=== PATIENT | male | born 1950 | race Caucasian/White ===

== ENCOUNTER 2017-02-11 12:36 | Emergency (ER) | payer MEDICARE, OTHER ==
[~2017-02-11] VITALS: Ht 177.8 cm; Wt 85.0 kg
[~2017-02-11 12:36] MED LIST: METH10TA PO; METO25 PO; ZOCO40TA PO
[2017-02-11 12:38] VITALS: BP 133/84; PULSE 105; RESP 18; TEMP 99.3; O2SAT 95
[2017-02-11] MEDS ORDERED: METH40TA PO (12:55)
[2017-02-11] MEDS ORDERED: METO25TA3 PO (12:55)
[2017-02-11] MEDS ORDERED: ZOCO40TA PO (12:55)
[2017-02-11 12:56] VITALS: BP 158/87; PULSE 87; RESP 17; TEMP 99.6; O2SAT 98
[2017-02-11] MEDS ORDERED: SODIUM CHLOR 0.9% 1000 ML INJ 1,000 ML IV SCH ×2 (12:58→14:32)
[2017-02-11 13:07] VITALS: BP 132/77; PULSE 81; RESP 19; O2SAT 97
--- NOTE | 2017-02-11 13:15 | PD ---
HPI Chief Complaint: General Weakness Time Seen by Provider: 13:11 Travel History International Travel<30 days: No Contact w/Intl Traveler<30days: No Traveled to known affect area: No History of Present Illness HPI 66-year-old male that presents to the ED for evaluation of generalized weakness and constipation for 2 weeks. Per patient he has a history of constipation in the past secondary to the use of the medication for pain which per patient he stopped about 2 weeks ago to help him go have a bowel movement. Per patient 2 weeks ago he has no had a normal bowel movement. History [id number] remedies with no relief. Per patient he feels weak throughout. He states that he has no desire to eat. Per patient he is able to keep stuff down but his appetite is diminished. He states that he feels that he has a low-grade fever and chills. Denies any sick contacts. No recent travel. No chest pain or shortness of breath. He does have a history of COPD. He denies any cough or runny nose. No urinary symptoms. He denies any abdominal pain but does have some abdominal discomfort per patient. Pain is 4 out of 10. PFSH Past Medical History Arthritis: Yes (in Shoulders) Asthma: Yes Autoimmune Disease: No Anxiety: Yes Depression: Yes Cancer: Yes (Skin Cancer ) Cardiovascular Problems: Yes (HTN) High Cholesterol: Yes Congestive Heart Failure: No COPD: Yes Coronary Artery Disease: No Diabetes: No Diminished Hearing: No Endocrine: No Gastrointestinal Disorders: Yes Genitourinary: No Hepatitis: Yes (C) Hypertension: Yes Immune Disorder: No Implanted Vascular Access Dvce: No Musculoskeletal: Yes Psychiatric: Yes (PTSD) Reproductive: No Respiratory: Yes (COPD) Immunizations Current: Yes Triglycerides - High: Yes Tetanus Vaccination: > 5 Years Influenza Vaccination: Yes Past Surgical History Surgical History: No Previous Surgery Cholecystectomy: Yes (PT DENIES ) Social History Alcohol Use: Yes (ONE-TWO DRINK A DAY) Tobacco Use: No Substance Use: No (HX OF OPIATE,METHADONE USED. PT DENIES AT THIS MOMENT) Allergies-Medications (Allergen,Severity, Reaction): Coded Allergies: No Known Allergies (Verified , 02/11/17) Reported Meds & Prescriptions Reported Meds & Active Scripts Active Reported Methadone (Methadone HCl) 40 Mg Tab 50 Mg PO DAILY Metoprolol Tartrate 25 Mg Tab 25 Mg PO BID Zocor (Simvastatin) 40 Mg Tab 40 Mg PO HS Review of Systems Except as stated in HPI: all other systems reviewed are Neg Physical Exam Narrative GENERAL: SKIN: Warm and dry. HEAD: Atraumatic. Normocephalic. EYES: Pupils equal and round. No scleral icterus. No injection or drainage. ENT: No nasal bleeding or discharge. Mucous membranes pink and moist. Tongue is midline. No uvula deviation. NECK: Trachea midline. No JVD. CARDIOVASCULAR: Regular rate and rhythm. No murmurs, S3, S4. RESPIRATORY: No accessory muscle use. Clear to auscultation. Breath sounds equal bilaterally. GASTROINTESTINAL: Abdomen soft, non-tender, nondistended. Hepatic and splenic margins not palpable. MUSCULOSKELETAL: Extremities without clubbing, cyanosis, or edema. No obvious deformities. Full range of motion of the upper and lower extremities bilaterally. 2+ pulses bilaterally. NEUROLOGICAL: Awake and alert. No obvious cranial nerve deficits. Motor grossly within normal limits. Five out of 5 muscle strength in the arms and legs. Normal speech. PSYCHIATRIC: Appropriate mood and affect; insight and judgment normal. Data Data Last Documented VS Vital Signs Date Time Temp Pulse Resp B/P Pulse Ox O2 Delivery O2 Flow Rate FiO2 02/11/17 14:57 69 17 137/84 97 Room Air 02/11/17 12:56 99.6 Orders Complete Blood Count With Diff (02/11/17 12:58) Comprehensive Metabolic Panel (02/11/17 12:58) Lipase (02/11/17 12:58) Lactic Acid (02/11/17 12:58) Prothrombin Time / Inr (Pt) (02/11/17 12:58) Act Partial Throm Time (Ptt) (02/11/17 12:58) Urinalysis - C+S If Indicated (02/11/17 12:58) Ct Abd/Pel W Iv Contrast(Rout) (02/11/17 12:58) Iv Access Insert/Monitor (02/11/17 12:58) Ecg Monitoring (02/11/17 12:58) Oximetry (02/11/17 12:58) Sodium Chlor 0.9% 1000 Ml Inj (Ns 1000 M (02/11/17 12:58) Chest, Single Ap (02/11/17 ) Iohexol 350 Inj (Omnipaque 350 Inj) (02/11/17 14:16) Sodium Chlor 0.9% 1000 Ml Inj (Ns 1000 M (02/11/17 14:32) Labs Laboratory Tests Test 02/11/17 02/11/17 13:00 14:50 White Blood Count 9.0 TH/MM3 Red Blood Count 5.09 MIL/MM3 Hemoglobin 15.6 GM/DL Hematocrit 45.8 % Mean Corpuscular Volume 89.9 FL Mean Corpuscular Hemoglobin 30.6 PG Mean Corpuscular Hemoglobin 34.0 % Concent Red Cell Distribution Width 14.4 % Platelet Count 287 TH/MM3 Mean Platelet Volume 8.4 FL Neutrophils (%) (Auto) 54.7 % Lymphocytes (%) (Auto) 39.0 % Monocytes (%) (Auto) 4.2 % Eosinophils (%) (Auto) 1.3 % Basophils (%) (Auto) 0.8 % Neutrophils # (Auto) 4.9 TH/MM3 Lymphocytes # (Auto) 3.5 TH/MM3 Monocytes # (Auto) 0.4 TH/MM3 Eosinophils # (Auto) 0.1 TH/MM3 Basophils # (Auto) 0.1 TH/MM3 CBC Comment DIFF FINAL Differential Comment Prothrombin Time 11.2 SEC Prothromb Time International 1.0 RATIO Ratio Activated Partial 25.7 SEC Thromboplast Time Sodium Level 136 MEQ/L Potassium Level 3.5 MEQ/L Chloride Level 104 MEQ/L Carbon Dioxide Level 23.8 MEQ/L Anion Gap 8 MEQ/L Blood Urea Nitrogen 3 MG/DL Creatinine 0.92 MG/DL Estimat Glomerular Filtration 82 ML/MIN Rate Random Glucose 117 MG/DL Lactic Acid Level 2.0 mmol/L Calcium Level 9.1 MG/DL Total Bilirubin 0.3 MG/DL Aspartate Amino Transf 56 U/L (AST/SGOT) Alanine Aminotransferase 62 U/L (ALT/SGPT) Alkaline Phosphatase 106 U/L Total Protein 7.4 GM/DL Albumin 3.1 GM/DL Lipase 189 U/L Urine Color LIGHT-YELLOW Urine Turbidity CLEAR Urine pH 7.5 Urine Specific [place] 1.010 Urine Protein NEG mg/dL Urine Glucose (UA) NEG mg/dL Urine Ketones NEG mg/dL Urine Occult Blood NEG Urine Nitrite NEG Urine Bilirubin NEG Urine Urobilinogen LESS THAN 2.0 MG/DL Urine Leukocyte Esterase NEG Urine WBC LESS THAN 1 /hpf Microscopic Urinalysis Comment CULT NOT INDICATED MDM Medical Decision Making Medical Screen Exam Complete: Yes Emergency Medical Condition: Yes Medical Record Reviewed: Yes Interpretation(s) CBC & BMP Diagram 02/11/17 13:00 Last Impressions Abdomen/Pelvis CT 02/11/17 1258 Signed Impressions: Service Date/Time: , February 11, 2017 14:07 - CONCLUSION: Prostatomegaly Otherwise stable evaluation without evidence of acute process, suspicious mass or lymphadenopathy. Mark King MD Chest X-Ray 02/11/17 0000 Signed Impressions: Service Date/Time: , February 11, 2017 13:14 - CONCLUSION: No acute disease. Amado Jhaveri MD LFTs and lipase within normal limits. Urine negative. Differential Diagnosis Abdominal pain versus constipation versus sepsis versus dehydration versus UTI versus infection versus obstruction Narrative Course 66-year-old male that presents to the ED for evaluation of generalized weakness and possible constipation. Patient was properly examined and was found to have signs and symptoms of unclear etiology. Labs and imaging were ordered. Labs and imaging came back essentially unremarkable. that had large prostate noticed on the CAT scan otherwise unremarkable. No sign of UTI. No sign of other infection. Patient's vitals and physical exam are reassuring. Clear as to the reason of the weakness. My attending Dr. Francisco evaluated the patient with me and agrees with discharge. At this time recommendations for outpatient follow-up for further evaluation. Do recommend follow up for colonoscopy and possible evaluation of the prostate as it is enlarging could potentially be concerning for malignancy. Follow with PCP. See ED worsening symptoms. Diagnosis Primary Impression: Weakness generalized Additional Impression: Enlarged prostate Patient Instructions: General Instructions Additional Instructions: Continue taking your medications as prescribed. We [facility] as well as to get evaluated for the enlarged prostate. See ED worsening symptoms. There is no sign of constipation arranger scanned. I recommended continued take MiraLAX daily. Med/Other Pt SpecificInfo: No Change to Meds Disposition: DISCHARGE HOME Condition: Stable Fermín Ibarra Feb 11, 2017 13:15
[2017-02-11 13:22] LABS: AUTOMATED NEUTROPHIL # 4.9 TH/MM3 (1.8-7.7); BASOPHIL # 0.1 TH/MM3 (0-0.2); BASOPHIL % 0.8 % (0.0-2.0); EOSINOPHIL # 0.1 TH/MM3 (0-0.4); EOSINOPHIL % 1.3 % (0.0-4.0); HEMATOCRIT 45.8 % (39.0-51.0); HEMO FLAGS DIFF FINAL; LYMPHOCYTE # 3.5 TH/MM3 (1.0-4.8); MEAN CELL VOLUME 89.9 FL (80.0-100.0); MEAN CORPUSCULAR HEMOGLOBIN 30.6 PG (27.0-34.0); MONO % 4.2 % (0.0-8.0); NEUT % 54.7 % (16.0-70.0); PLATELET COUNT 287 TH/MM3 (150-450); RED BLOOD COUNT 5.09 MIL/MM3 (4.50-5.90); RED CELL DISTRIBUTION WIDTH 14.4 % (11.6-17.2)
[2017-02-11 13:29] LABS: APTT (PATIENT) 25.7 SEC (24.3-30.1); PROTHROMBIN TIME - PATIENT 11.2 SEC (9.8-11.6)
[2017-02-11 13:37] LABS: ALT (GPT) 62 U/L (12-78)
[2017-02-11 13:39] LABS: ALKALINE PHOSPHATASE 106 U/L (45-117); TOTAL BILIRUBIN ADULT 0.3 MG/DL (0.2-1.0)
[2017-02-11 13:43] LABS: ANION GAP 8 MEQ/L (5-15); AST (GOT) 56 U/L (15-37); BICARBONATE 23.8 MEQ/L (21.0-32.0); BLOOD UREA NITROGEN 3 MG/DL (7-18); CHLORIDE 104 MEQ/L (98-107); GLOMERULAR FILTRATION RATE 82 ML/MIN (>89); POTASSIUM 3.5 MEQ/L (3.5-5.1); SODIUM (NA) 136 MEQ/L (136-145)
[2017-02-11] MEDS ORDERED: IOHEXOL 350 MG/ML 10 ML VIAL (for RAD DIAG) IV ONE (14:16)
--- NOTE | 2017-02-11 14:21 | RADRPT ---
EXAM DATE/TIME: 02/11/2017 13:14 [facility] COMPARISON: CHEST SINGLE AP, February 27, 2016, 16:13. INDICATIONS : Fever. MEDICAL HISTORY : Hypertension. SURGICAL HISTORY : None. ENCOUNTER: Initial ACUITY: 1 day PAIN SCORE: 0/10 LOCATION: Bilateral chest FINDINGS: A single view of the chest demonstrates the lungs to be symmetrically aerated without evidence of mas s, infiltrate or effusion. The cardiomediastinal contours are unremarkable. Osseous structures are intact. CONCLUSION: No acute disease. Amado Jhaveri MD on February 11, 2017 at 14:18 Board Certified Radiologist. This report was verified electronically.
--- NOTE | 2017-02-11 14:51 | RADRPT ---
EXAM DATE/TIME: 02/11/2017 14:07 [facility] COMPARISON: CT ABDOMEN & PELVIS W CONTRAST, January 06, 2014, 23:25. INDICATIONS : Weakness, fever and constipation for 3 weeks. IV CONTRAST: 93 cc Omnipaque 350 (iohexol) IV ORAL CONTRAST: No oral contrast ingested. RADIATION DOSE: 14.49 CTDIvol (mGy) MEDICAL HISTORY : Hypertension. Hepatitis C. copd, skin ca SURGICAL HISTORY : None. ENCOUNTER: Initial ACUITY: 3 weeks PAIN SCALE: 5/10 LOCATION: abdomen TECHNIQUE: Volumetric scanning of the abdomen and pelvis was performed. Using automated exposure control and ad justment of the mA and/or kV according to patient size, radiation dose was kept as low as reasonably achievable to obtain optimal diagnostic quality images. DICOM format image data is available electro nically for review and comparison. FINDINGS: LOWER LUNGS: The visualized lower lungs are clear. LIVER: Homogeneous density without lesion. There is no dilation of the biliary tree. No calcified gallston es. SPLEEN: Normal size without lesion. PANCREAS: Within normal limits. KIDNEYS: Normal in size and shape. There is no mass, stone or hydronephrosis. ADRENAL GLANDS: Within normal limits. VASCULAR: There is no aortic aneurysm. BOWEL/MESENTERY: The stomach, small bowel, and colon demonstrate no acute abnormality. There is no free intraperitone al air or fluid. ABDOMINAL WALL: Within normal limits. RETROPERITONEUM: There is no lymphadenopathy. BLADDER: No wall thickening or mass. REPRODUCTIVE: Prostate gland is mildly enlarged. INGUINAL: There is no lymphadenopathy or hernia. MUSCULOSKELETAL: Within normal limits for patient age. CONCLUSION: Prostatomegaly Otherwise stable evaluation without evidence of acute process, suspicious mass or lymphadenopathy. Mark King MD on February 11, 2017 at 14:44 Board Certified Radiologist. This report was verified electronically.
[2017-02-11 14:57] VITALS: BP 137/84; PULSE 69; RESP 17; O2SAT 97
[2017-02-11 15:16] LABS: BLOOD, URINE NEG (NEG); GLUCOSE,URINE NEG (NEG); KETONE, URINE NEG (NEG); NITRITE,URINE NEG (NEG); PH, URINE 7.5 (5.0-8.5); URINE COLOR LIGHT-YELLOW (YELLW/STRAW)
[2017-02-11 15:20] LABS: COMMENT (UR) CULT NOT INDICATED; CULTURE IF INDICATED CULT NOT INDICATED
[2017-02-11] MEDS ORDERED: MIRA3350 PO (15:31)
[2017-02-11 15:51] VITALS: BP 176/84
== END 2017-02-11 15:52 | disposition home or self-care (01) ==
LOC: NEPC 12:36
DX: R53.1 Weakness (principal); N40.0 Benign prostatic hyperplasia without lower urinary tract symptoms; K59.00 Constipation, unspecified; R50.9 Fever, unspecified; R10.9 Unspecified abdominal pain; I10 Essential (primary) hypertension; E78.00 Pure hypercholesterolemia, unspecified; E78.1 Pure hyperglyceridemia; Z87.09 Personal history of other diseases of the respiratory system; Z87.39 Personal history of other diseases of the musculoskeletal system and connective tissue; Z86.59 Personal history of other mental and behavioral disorders; Z86.79 Personal history of other diseases of the circulatory system; Z87.19 Personal history of other diseases of the digestive system
CPT/HCPCS: 71010; 74177; 80053; 81001; 83605; 83690; 85025; 85610; 85730; 96360; 96361; 99285; J7030; Q9967

== ENCOUNTER 2017-02-27 11:03 | Emergency (ER) | payer MEDICARE, OTHER ==
[~2017-02-27 11:03] MED LIST changes: -METH10TA PO; +METH40TA PO; -METO25 PO; +METO25TA3 PO; +MIRA3350 PO
[2017-02-27 11:04] VITALS: BP 198/113; PULSE 90; RESP 24; TEMP 98.2; O2SAT 98
[2017-02-27] MEDS ORDERED: DIAZEPAM 10 MG TAB PO ONE (12:30)
[2017-02-27] MEDS ORDERED: SODIUM CHLOR 0.9% 1000 ML INJ 1,000 ML IV ONE (12:30)
[2017-02-27] MEDS ORDERED: KETOROLAC TROMETHAMINE 30 MG/ML (IVP) VIAL IV PUSH ONE (12:30)
[2017-02-27 12:51] LABS: AUTOMATED NEUTROPHIL # 7.9 TH/MM3 (1.8-7.7); BASOPHIL # 0.1 TH/MM3 (0-0.2); BASOPHIL % 0.9 % (0.0-2.0); EOSINOPHIL # 0.2 TH/MM3 (0-0.4); EOSINOPHIL % 1.4 % (0.0-4.0); HEMATOCRIT 44.2 % (39.0-51.0); HEMO FLAGS DIFF FINAL; LYMPH % 30.7 % (9.0-44.0); LYMPHOCYTE # 3.9 TH/MM3 (1.0-4.8); MEAN CORPUSCULAR HEMOGLOBIN 31.3 PG (27.0-34.0); MEAN CORPUSCULAR HGB CONC 34.4 % (32.0-36.0); MONO % 4.7 % (0.0-8.0); NEUT % 62.3 % (16.0-70.0); PLATELET COUNT 286 TH/MM3 (150-450); RED BLOOD COUNT 4.85 MIL/MM3 (4.50-5.90); RED CELL DISTRIBUTION WIDTH 14.2 % (11.6-17.2); WHITE BLOOD COUNT 12.8 TH/MM3 (4.0-11.0)
[2017-02-27 13:07] LABS: ALT (GPT) 36 U/L (12-78)
[2017-02-27 13:11] LABS: ALKALINE PHOSPHATASE 84 U/L (45-117); TOTAL BILIRUBIN ADULT 0.5 MG/DL (0.2-1.0)
[2017-02-27 13:13] LABS: ANION GAP 8 MEQ/L (5-15); AST (GOT) 40 U/L (15-37); BICARBONATE 23.4 MEQ/L (21.0-32.0); BLOOD UREA NITROGEN 6 MG/DL (7-18); CHLORIDE 105 MEQ/L (98-107); GLOMERULAR FILTRATION RATE 72 ML/MIN (>89); SODIUM (NA) 136 MEQ/L (136-145)
[2017-02-27 13:16] LABS: POTASSIUM 4.6 MEQ/L (3.5-5.1)
--- NOTE | 2017-02-27 13:32 | RADRPT ---
EXAM DATE/TIME: 02/27/2017 12:45 [facility] COMPARISON: CHEST SINGLE AP, February 11, 2017, 13:14. INDICATIONS : Chest pressure, short of breath, weakness. MEDICAL HISTORY : Chronic obstructive pulmonary disease. Hypertension Hepatitis C. SURGICAL HISTORY : None. ENCOUNTER: Initial ACUITY: 1 month PAIN SCORE: 1/10 LOCATION: Bilateral chest FINDINGS: The lungs are clear without infiltrate, nodule, or mass. There is no appreciable pleural effusion fo r technique. Heart and mediastinum are unremarkable. CONCLUSION: No acute cardiopulmonary disease. Katalina Middleton MD on February 27, 2017 at 13:30 Board Certified Radiologist. This report was verified electronically.
[2017-02-27 14:20] VITALS: RESP 16
--- NOTE | 2017-02-27 15:52 | PD ---
HPI Chief Complaint: Musculoskeletal Complaint Time Seen by Provider: 12:17 Travel History International Travel<30 days: No Contact w/Intl Traveler<30days: No Traveled to known affect area: No History of Present Illness HPI Patient is a 66-year-old male who comes in complaining of generalized weakness. He was here 2 weeks ago for the same thing. He says he has back pain, which has been chronic for a long time. He denies any new injuries. He says he feels weak when he walks. He does admit he has no place to live. He denies fever or chills. He denies chest pain or shortness of breath. He denies any specific complaints. PFSH Past Medical History Arthritis: Yes (in Shoulders) Asthma: Yes Autoimmune Disease: No Anxiety: Yes Depression: Yes Cancer: Yes (Skin Cancer ) Cardiovascular Problems: Yes High Cholesterol: Yes Congestive Heart Failure: No COPD: Yes Coronary Artery Disease: No Diabetes: No Diminished Hearing: No Endocrine: No Gastrointestinal Disorders: Yes Genitourinary: No Hepatitis: Yes (C) Hypertension: Yes Immune Disorder: No Implanted Vascular Access Dvce: No Musculoskeletal: Yes Psychiatric: Yes (PTSD) Reproductive: No Respiratory: Yes (COPD) Immunizations Current: Yes Triglycerides - High: Yes Tetanus Vaccination: Unknown ?: Not Past Surgical History Surgical History: No Previous Surgery Cholecystectomy: Yes (PT DENIES ) Social History Alcohol Use: No Tobacco Use: Yes (2 cigs/day) Substance Use: No (HX OF OPIATE,METHADONE USED. PT DENIES AT THIS MOMENT) Allergies-Medications (Allergen,Severity, Reaction): Coded Allergies: No Known Allergies (Verified , 02/11/17) Reported Meds & Prescriptions Reported Meds & Active Scripts Active Reported Metoprolol Tartrate 25 Mg Tab 25 Mg PO BID Zocor (Simvastatin) 40 Mg Tab 40 Mg PO HS Review of Systems Except as stated in HPI: all other systems reviewed are Neg General / Constitutional: No: Fever, Chills HENT: No: Headaches, Lightheadedness Cardiovascular: No: Chest Pain or Discomfort Respiratory: No: Shortness of Breath Gastrointestinal: No: Nausea, Vomiting, Abdominal Pain Genitourinary: No: Dysuria Musculoskeletal: No: Myalgias Skin: No Rash Neurologic: Positive: Weakness Physical Exam Narrative GENERAL: Awake and alert, in no acute distress. SKIN: Focused skin assessment warm/dry. HEAD: Atraumatic. Normocephalic. EYES: Pupils equal and round. No scleral icterus. ENT: Mucous membranes pink and moist. NECK: Trachea midline. No JVD. CARDIOVASCULAR: Regular rate and rhythm. No murmur appreciated. RESPIRATORY: No accessory muscle use. Clear to auscultation. Breath sounds equal bilaterally. GASTROINTESTINAL: Abdomen soft, non-tender, nondistended. MUSCULOSKELETAL: No obvious deformities. No clubbing. No cyanosis. No edema. No spinal tenderness to palpation. NEUROLOGICAL: Awake and alert. No obvious cranial nerve deficits. Motor grossly within normal limits. Normal speech. Able to walk without difficulty. PSYCHIATRIC: Appropriate mood and affect; insight and judgment normal. Data Data Last Documented VS Vital Signs Date Time Temp Pulse Resp B/P Pulse Ox O2 Delivery O2 Flow Rate FiO2 02/27/17 14:20 16 02/27/17 11:04 98.2 90 198/113 98 Room Air Orders Complete Blood Count With Diff (02/27/17 12:17) Comprehensive Metabolic Panel (02/27/17 12:17) Troponin I (02/27/17 12:17) Electrocardiogram (02/27/17 ) Chest, Ap & Lat (02/27/17 ) Iv Access Insert/Monitor (02/27/17 12:17) Diazepam (Valium) (02/27/17 12:30) Ketorolac Inj (Toradol Inj) (02/27/17 12:30) Sodium Chlor 0.9% 1000 Ml Inj (Ns 1000 M (02/27/17 12:30) Urinalysis - C+S If Indicated (02/27/17 12:17) Labs Laboratory Tests Test 02/27/17 12:36 White Blood Count 12.8 TH/MM3 Red Blood Count 4.85 MIL/MM3 Hemoglobin 15.2 GM/DL Hematocrit 44.2 % Mean Corpuscular Volume 91.0 FL Mean Corpuscular Hemoglobin 31.3 PG Mean Corpuscular Hemoglobin 34.4 % Concent Red Cell Distribution Width 14.2 % Platelet Count 286 TH/MM3 Mean Platelet Volume 8.0 FL Neutrophils (%) (Auto) 62.3 % Lymphocytes (%) (Auto) 30.7 % Monocytes (%) (Auto) 4.7 % Eosinophils (%) (Auto) 1.4 % Basophils (%) (Auto) 0.9 % Neutrophils # (Auto) 7.9 TH/MM3 Lymphocytes # (Auto) 3.9 TH/MM3 Monocytes # (Auto) 0.6 TH/MM3 Eosinophils # (Auto) 0.2 TH/MM3 Basophils # (Auto) 0.1 TH/MM3 CBC Comment DIFF FINAL Differential Comment Sodium Level 136 MEQ/L Potassium Level 4.6 MEQ/L Chloride Level 105 MEQ/L Carbon Dioxide Level 23.4 MEQ/L Anion Gap 8 MEQ/L Blood Urea Nitrogen 6 MG/DL Creatinine 1.03 MG/DL Estimat Glomerular Filtration 72 ML/MIN Rate Random Glucose 134 MG/DL Calcium Level 9.2 MG/DL Total Bilirubin 0.5 MG/DL Aspartate Amino Transf 40 U/L (AST/SGOT) Alanine Aminotransferase 36 U/L (ALT/SGPT) Alkaline Phosphatase 84 U/L Troponin I LESS THAN 0.02 NG/ML Total Protein 7.4 GM/DL Albumin 3.1 GM/DL MDM Medical Decision Making Medical Screen Exam Complete: Yes Emergency Medical Condition: Yes Medical Record Reviewed: Yes Differential Diagnosis Electrolyte abnormality versus dehydration versus malingering Narrative Course Patient is a 66-year-old male who comes in complaining of generalized weakness. Exam shows no neurologic abnormalities. IV established labs sent. Labs show slight elevation in white blood cell count of 12.8. Chest x-ray is negative for any acute findings. Patient refuses to urinate. He is given IV fluids. Case management came to speak with him because he has no place to live. He is advised follow-up at the [facility]. Patient advised follow-up with his primary doctor. Advised to return to the ED as needed for any worsening symptoms. Diagnosis Primary Impression: Weakness generalized Patient Instructions: General Instructions, Weakness (ED) Additional Instructions: Follow-up at the [facility]. Drink plan fluids. Return as needed for any worsening symptoms. Disposition: 01 DISCHARGE HOME Condition: Stable Ave Fields MD Feb 27, 2017 15:52
--- NOTE | 2017-02-28 12:40 | EKG ---
Date Performed: 02/27/2017 Time Performed: 13:14:31 PTAGE: 66 years EKG: Sinus rhythm Compared to prior tracing no significant change NORMAL ECG PREVIOUS TRACING : 02/27/2016 16.12 DOCTOR: Chirag Victoria Interpretating Date/Time 02/28/2017 12:34:33
== END 2017-02-27 16:09 | disposition home or self-care (01) ==
LOC: NEPD 11:03
DX: R53.1 Weakness (principal); D72.829 Elevated white blood cell count, unspecified; M54.9 Dorsalgia, unspecified; G89.29 Other chronic pain; I10 Essential (primary) hypertension; E78.5 Hyperlipidemia, unspecified; Z72.0 Tobacco use; Z87.39 Personal history of other diseases of the musculoskeletal system and connective tissue; Z87.09 Personal history of other diseases of the respiratory system; Z86.59 Personal history of other mental and behavioral disorders; Z86.79 Personal history of other diseases of the circulatory system; Z87.19 Personal history of other diseases of the digestive system
CPT/HCPCS: 71020; 80053; 84484; 85025; 93005; 96361; 96374; 99284; J1885; J7030

== ENCOUNTER 2017-03-10 09:43 | Inpatient (IN) | payer OTHER, MEDICARE ==
[~2017-03-10] VITALS: Ht 177.8 cm; Wt 77.6 kg
[~2017-03-10 09:43] MED LIST changes: -METH40TA PO; -MIRA3350 PO
[2017-03-10 11:26] VITALS: BP 182/92; PULSE 77; RESP 18; TEMP 97; O2SAT 96
[2017-03-10 12:05] LABS: AUTOMATED NEUTROPHIL # 4.8 TH/MM3 (1.8-7.7); BASOPHIL # 0.1 TH/MM3 (0-0.2); BASOPHIL % 0.9 % (0.0-2.0); EOSINOPHIL # 0.1 TH/MM3 (0-0.4); EOSINOPHIL % 1.5 % (0.0-4.0); HEMATOCRIT 45.5 % (39.0-51.0); HEMO FLAGS DIFF FINAL; LYMPHOCYTE # 3.7 TH/MM3 (1.0-4.8); MEAN CELL VOLUME 92.1 FL (80.0-100.0); MEAN CORPUSCULAR HEMOGLOBIN 31.1 PG (27.0-34.0); MEAN CORPUSCULAR HGB CONC 33.8 % (32.0-36.0); MONO % 5.3 % (0.0-8.0); NEUT % 52.3 % (16.0-70.0); PLATELET COUNT 330 TH/MM3 (150-450); RED BLOOD COUNT 4.94 MIL/MM3 (4.50-5.90); RED CELL DISTRIBUTION WIDTH 14.3 % (11.6-17.2); WHITE BLOOD COUNT 9.2 TH/MM3 (4.0-11.0)
--- NOTE | 2017-03-10 12:27 | PD ---
HPI Chief Complaint: Psychiatric Symptoms Time Seen by Provider: 12:13 Travel History International Travel<30 days: No Contact w/Intl Traveler<30days: No Traveled to known affect area: No History of Present Illness HPI Patient is a 66-year-old male brought into the emergency Department under [place] act for making suicidal statements at the [place]. Patient states that he is tired of feeling weak and made those statements in order to get help. He reports that he has felt weak for 1-2 months, he reports a 20 pound weight loss. He reports that he is eating when he feels hungry. He denies any fever, chills, abdominal pain, chest pain, headaches. He does report that for the last 1-2 months he has been unable to sleep at night. He reports sleeping for 15 minutes to hour and waking up frequently. He reports a history of chronic low back pain and hypertension. He has not taken any medications for his blood pressure today. Patient lives alone, he has a brother in the area. He denies any relationship issues. He denies any illicit drug use. He further denies any visual auditory hallucinations or previous suicide attempt. PFSH Past Medical History Arthritis: Yes (in Shoulders) Asthma: Yes Autoimmune Disease: No Anxiety: Yes Depression: Yes Cancer: Yes (Skin Cancer ) High Cholesterol: Yes Congestive Heart Failure: No COPD: Yes Coronary Artery Disease: No Diabetes: No Diminished Hearing: No Endocrine: No Gastrointestinal Disorders: Yes Genitourinary: No Hepatitis: Yes (C) Hypertension: Yes Immune Disorder: No Implanted Vascular Access Dvce: No Psychiatric: Yes (PTSD) Reproductive: No Immunizations Current: Yes Triglycerides - High: Yes Past Surgical History Cholecystectomy: Yes (PT DENIES ) Social History Alcohol Use: No Tobacco Use: Yes (2 cigs/day) Substance Use: No (HX OF OPIATE,METHADONE USED. PT DENIES AT THIS MOMENT) Allergies-Medications (Allergen,Severity, Reaction): Coded Allergies: No Known Allergies (Verified , 02/11/17) Reported Meds & Prescriptions Reported Meds & Active Scripts Active Reported Metoprolol Tartrate 25 Mg Tab 25 Mg PO BID Zocor (Simvastatin) 40 Mg Tab 40 Mg PO HS Review of Systems Except as stated in HPI: all other systems reviewed are Neg General / Constitutional: No: Fever, Chills HENT: No: Headaches Cardiovascular: No: Chest Pain or Discomfort Respiratory: No: Shortness of Breath Gastrointestinal: No: Nausea, Vomiting, Abdominal Pain, Loss of Appetite Genitourinary: No: Dysuria Musculoskeletal: Positive: Pain (low back pain, chronic) Neurologic: Positive: Weakness, Other (insomnia) Psychiatric: Positive: Depression Physical Exam Narrative GENERAL: Well-developed, well-nourished, alert male. Resting comfortably in no acute distress. SKIN: Warm and dry. HEAD: Atraumatic. Normocephalic. EYES: Pupils equal and round. No scleral icterus. No injection or drainage. ENT: No nasal bleeding or discharge. Mucous membranes pink and moist. NECK: Trachea midline. No JVD. CARDIOVASCULAR: Regular rate and rhythm. RESPIRATORY: No accessory muscle use. Scattered expiratory wheezes. Breath sounds equal bilaterally. GASTROINTESTINAL: Abdomen soft, non-tender, nondistended. Hepatic and splenic margins not palpable. MUSCULOSKELETAL: Extremities without clubbing, cyanosis, or edema. No obvious deformities. NEUROLOGICAL: Awake and alert. No obvious cranial nerve deficits. Motor grossly within normal limits. Five out of 5 muscle strength in the arms and legs. Normal speech. PSYCHIATRIC: Appropriate mood and affect; insight and judgment normal. Data Data Last Documented VS Vital Signs Date Time Temp Pulse Resp B/P Pulse Ox O2 Delivery O2 Flow Rate FiO2 03/10/17 11:26 97.0 77 18 182/92 96 Orders Complete Blood Count With Diff (03/10/17 11:32) Comprehensive Metabolic Panel (03/10/17 11:32) Psych Screen (03/10/17 11:32) Diet Regular Basic (03/10/17 Lunch) Labs Laboratory Tests Test 03/10/17 11:25 White Blood Count 9.2 TH/MM3 Red Blood Count 4.94 MIL/MM3 Hemoglobin 15.4 GM/DL Hematocrit 45.5 % Mean Corpuscular Volume 92.1 FL Mean Corpuscular Hemoglobin 31.1 PG Mean Corpuscular Hemoglobin 33.8 % Concent Red Cell Distribution Width 14.3 % Platelet Count 330 TH/MM3 Mean Platelet Volume 7.5 FL Neutrophils (%) (Auto) 52.3 % Lymphocytes (%) (Auto) 40.0 % Monocytes (%) (Auto) 5.3 % Eosinophils (%) (Auto) 1.5 % Basophils (%) (Auto) 0.9 % Neutrophils # (Auto) 4.8 TH/MM3 Lymphocytes # (Auto) 3.7 TH/MM3 Monocytes # (Auto) 0.5 TH/MM3 Eosinophils # (Auto) 0.1 TH/MM3 Basophils # (Auto) 0.1 TH/MM3 CBC Comment DIFF FINAL Differential Comment Sodium Level 139 MEQ/L Potassium Level 4.0 MEQ/L Chloride Level 106 MEQ/L Carbon Dioxide Level 23.6 MEQ/L Anion Gap 9 MEQ/L Blood Urea Nitrogen 6 MG/DL Creatinine 0.97 MG/DL Estimat Glomerular Filtration 77 ML/MIN Rate Random Glucose 87 MG/DL Calcium Level 9.2 MG/DL Total Bilirubin 0.5 MG/DL Aspartate Amino Transf 24 U/L (AST/SGOT) Alanine Aminotransferase 32 U/L (ALT/SGPT) Alkaline Phosphatase 84 U/L Total Protein 7.7 GM/DL Albumin 3.4 GM/DL MDM Medical Decision Making Medical Screen Exam Complete: Yes Emergency Medical Condition: Yes Interpretation(s) Laboratory Tests Test 03/10/17 11:25 White Blood Count 9.2 TH/MM3 Red Blood Count 4.94 MIL/MM3 Hemoglobin 15.4 GM/DL Hematocrit 45.5 % Mean Corpuscular Volume 92.1 FL Mean Corpuscular Hemoglobin 31.1 PG Mean Corpuscular Hemoglobin 33.8 % Concent Red Cell Distribution Width 14.3 % Platelet Count 330 TH/MM3 Mean Platelet Volume 7.5 FL Neutrophils (%) (Auto) 52.3 % Lymphocytes (%) (Auto) 40.0 % Monocytes (%) (Auto) 5.3 % Eosinophils (%) (Auto) 1.5 % Basophils (%) (Auto) 0.9 % Neutrophils # (Auto) 4.8 TH/MM3 Lymphocytes # (Auto) 3.7 TH/MM3 Monocytes # (Auto) 0.5 TH/MM3 Eosinophils # (Auto) 0.1 TH/MM3 Basophils # (Auto) 0.1 TH/MM3 CBC Comment DIFF FINAL Differential Comment Sodium Level 139 MEQ/L Potassium Level 4.0 MEQ/L Chloride Level 106 MEQ/L Carbon Dioxide Level 23.6 MEQ/L Anion Gap 9 MEQ/L Blood Urea Nitrogen 6 MG/DL Creatinine 0.97 MG/DL Estimat Glomerular Filtration 77 ML/MIN Rate Random Glucose 87 MG/DL Calcium Level 9.2 MG/DL Total Bilirubin 0.5 MG/DL Aspartate Amino Transf 24 U/L (AST/SGOT) Alanine Aminotransferase 32 U/L (ALT/SGPT) Alkaline Phosphatase 84 U/L Total Protein 7.7 GM/DL Albumin 3.4 GM/DL Vital Signs Date Time Temp Pulse Resp B/P Pulse Ox O2 Delivery O2 Flow Rate FiO2 03/10/17 11:26 97.0 77 18 182/92 96 Differential Diagnosis Mood disorder versus substance abuse versus attention seeking versus insomnia versus electrolyte abnormality versus other Narrative Course Patient is a 66-year-old male presenting under [place] act for making suicidal statements. Patient admits to making the statements secondary to feeling weak for the last 1-2 months and not getting any answers. He does report new onset of insomnia with broken sleep, waking up very frequently reporting up to only 4 hours of sleep a night. Patient has been seen and evaluated in the emergency department twice over the last month with the same complaints. CT scan abdomen and pelvis on February 11 by radiologist showed prostatomegaly otherwise stable exam with no acute process. Chest x-ray performed on the same date showed no acute process. Chest x-ray on 27 February again with no acute process. Review of CBCs over the last month again show no acute abnormalities Patient's weakness may be directly related to the fact that he is not sleeping at night and feeling more tired during the day. He denies taking naps during the day as well, this fatigue from lack of sleep could be contributing to his mental illness/depression symptoms. CBC and chemistry reviewed and are unremarkable. Patient was given a meal tray , he is resting comfortably. Patient is medically cleared for psychiatric evaluation at this time. Diagnosis Primary Impression: Medical clearance for psychiatric admission Additional Impressions: Suicidal ideation Sleep disturbance, unspecified Condition: Stable Lucia Stock Mar 10, 2017 12:27
[2017-03-10 12:40] LABS: ALKALINE PHOSPHATASE 84 U/L (45-117); TOTAL BILIRUBIN ADULT 0.5 MG/DL (0.2-1.0)
[2017-03-10 12:41] LABS: ALT (GPT) 32 U/L (12-78); ANION GAP 9 MEQ/L (5-15); AST (GOT) 24 U/L (15-37); BICARBONATE 23.6 MEQ/L (21.0-32.0); BLOOD UREA NITROGEN 6 MG/DL (7-18); CHLORIDE 106 MEQ/L (98-107); GLOMERULAR FILTRATION RATE 77 ML/MIN (>89); SODIUM (NA) 139 MEQ/L (136-145)
[2017-03-10 20:59] VITALS: BP 161/98; PULSE 78; RESP 18; TEMP 96.7; O2SAT 96
[2017-03-10] MEDS ORDERED: diphenhydrAMINE HCL 50 MG/ML VIAL - HS PRN IM (21:15)
[2017-03-10] MEDS ORDERED: diphenhydrAMINE HCL 50 MG CAP - HS PRN PO (21:15)
[2017-03-10] MEDS ORDERED: ALUMINUM/MAGNESIUM/SIMETH 30 ML CUP PO PRN (21:15)
[2017-03-10] MEDS ORDERED: MAGNESIUM HYDROXIDE SUSP 30 ML CUP PO PRN (21:15)
[2017-03-10] MEDS ORDERED: ACETAMINOPHEN 325 MG TAB PO PRN (21:15)
[2017-03-10] MEDS ORDERED: LORazepam 2 MG/ML VIAL - age > 65 yrs IM PRN (21:15)
[2017-03-10] MEDS: LORazepam 0.5 MG TAB age > 65 yrs PO PRN (21:16)
[2017-03-10] MEDS: METOPROLOL TARTRATE 25 MG TAB PO SCH (21:16)
[2017-03-11 06:15] VITALS: BP 170/94; PULSE 62; RESP 18; TEMP 98.2; O2SAT 98
[2017-03-11 08:32] LABS: ANION GAP 8 MEQ/L (5-15); BICARBONATE 23.4 MEQ/L (21.0-32.0); BLOOD UREA NITROGEN 7 MG/DL (7-18); CHLORIDE 108 MEQ/L (98-107); GLOMERULAR FILTRATION RATE 88 ML/MIN (>89); POTASSIUM 3.8 MEQ/L (3.5-5.1); SODIUM (NA) 139 MEQ/L (136-145)
[2017-03-11 08:35] LABS: LDL CHOLESTEROL 119 MG/DL (0-99)
[2017-03-11] MEDS: NICOTINE 21 MG/24 HR PATCH T-DERMAL SCH (08:41)
[2017-03-11] MEDS: METOPROLOL TARTRATE 25 MG TAB PO SCH ×2 (08:41→20:14)
[2017-03-11 11:06] VITALS: BP 134/78; PULSE 63
[2017-03-11] MEDS ORDERED: SERTRALINE HCL 50 MG TAB PO STA (12:23)
[2017-03-11] MEDS: LORazepam 0.5 MG TAB age > 65 yrs PO PRN (12:24)
[2017-03-11] MEDS ORDERED: PILL SPLITTER OTHER PRN (12:45)
--- NOTE | 2017-03-11 16:23 | PD.CONS ---
[facility] Reason for Consult evaluation of HTN, HLD, and weight loss over past 6 months [facility] Diagnoses: History of Present Illness Written by Linda Tao, acting as scribe for Dr. Preciado on 03/11/17 at 16:23. This note was transcribed by acosta MURILLO. I, Dr. Micki Preciado personally performed the history, physical exam, and medical decision making; and confirmed the accuracy of the information in the transcribed note. Authenticated by Dr. Micki Preciado on 03/11/17 at 16:23. Patient is a 66-year-old male with primary medical history of anxiety , depression, HTN, HLD, GERD, COPD who came into the hospital under [place] act for making suicidal statements at the [place]. As per records, patient states that he is tired of feeling weak and for 1-2 months, he reports a 20 pound weight loss. He does report that for the last 1-2 months he has been unable to sleep at night. He reports sleeping for 15 minutes to hour and waking up frequently. He is now admitted to inpatient psychiatry unit for further evaluation. Consulted for evaluation of HTN, HLD, and weight loss over past 6 months. Patient seen and examined today. Appears depressed and not really much talking. Answers in single sentence. States his doing okay. Did not elaborate on his weight loss. Denies pain and discomfort. Denies SOB/ dyspnea. Denies chest pain, palpitations, headaches, dizziness. Denies fevers, chills, n/v/d. Denies dysuria. Review of Systems Except as stated in HPI: all other systems reviewed are Neg Past Family Social History Allergies: Coded Allergies: No Known Allergies (Verified , 03/10/17) Past Medical History Hypertension Hyperlipidemia COPD Anxiety Depression Past Surgical History Patient states none. Review of records, tonsillectomy Reported Medications Reported Meds & Active Scripts Active Reported Metoprolol Tartrate 25 Mg Tab 25 Mg PO BID Active Ordered Medications Current Medications Medications (Trade) Dose Ordered Sig/Epifanio Route Start Time Stop Time Status Last Admin (Ativan) 0.5 mg Q12H PRN PO 03/10/17 21:15 03/11/17 12:24 (Ativan Inj) 0.5 mg Q12H PRN IM 03/10/17 21:15 03/11/17 01:10 (Benadryl) 50 mg HS PRN PO 03/10/17 21:15 03/10/17 21:16 (Benadryl Inj) 50 mg HS PRN IM 03/10/17 21:15 (Tylenol) 650 mg Q4H PRN PO 03/10/17 21:15 (Milk Of Magnesia Liq) 30 ml DAILY PRN PO 03/10/17 21:15 (Mag-Al Plus Susp Liq) 30 ml Q6H PRN PO 03/10/17 21:15 (Habitrol 21 Mg Patch.24 Hr) 1 patch DAILY T-DERMAL 03/11/17 09:00 Miscellaneous Information 1 HS T-DERMAL 03/11/17 21:00 (Lopressor) 25 mg BID PO 03/10/17 21:15 03/11/17 08:41 (Zoloft) 50 mg DAILY PO 03/12/17 09:00 (Pill Splitter) 1 ea UNSCH PRN OTHER 03/11/17 12:45 Family History Doesn't really know family medical history. States that maybe his father had hypertension. Social History Last time patient had an alcohol use was 2 weeks ago Tobacco use 7-8 cigarettes per day Denies illicit drug use Physical Exam Vital Signs Vital Signs Date Time Temp Pulse Resp B/P Pulse Ox O2 Delivery O2 Flow Rate FiO2 03/11/17 11:06 63 134/78 03/11/17 06:15 98.2 62 18 170/94 98 03/10/17 20:59 96.7 78 18 161/98 96 Physical Exam GENERAL: This is a well-nourished, well-developed patient, in no apparent distress. SKIN: Warm and dry. HEAD: Normocephalic. EYES: Pupils equal round and reactive. No scleral icterus. No injection or drainage. ENT: Nose without bleeding. Throat without erythema. Uvula midline. Airway patent. NECK: Trachea midline. CARDIOVASCULAR: Regular rate and rhythm without murmurs, gallops, or rubs. RESPIRATORY: Clear to auscultation. Breath sounds equal bilaterally. No wheezes , rales, or rhonchi. GASTROINTESTINAL: Abdomen soft, non-tender, nondistended. No guarding. Bowel sounds active 4 MUSCULOSKELETAL: Extremities without clubbing, cyanosis, or edema. NEUROLOGICAL: Awake and alert. Cranial nerves II through XII intact. Motor and sensory grossly within normal limits. Normal speech. Laboratory Laboratory Tests Test 03/11/17 07:03 Sodium Level 139 Potassium Level 3.8 Chloride Level 108 Carbon Dioxide Level 23.4 Anion Gap 8 Blood Urea Nitrogen 7 Creatinine 0.87 Estimat Glomerular Filtration 88 Rate Random Glucose 88 Calcium Level 9.1 Triglycerides Level 187 Cholesterol Level 193 LDL Cholesterol 119 HDL Cholesterol 37.0 Cholesterol/HDL Ratio 5.21 Result Diagram: 03/10/17 1125 03/11/17 0703 Assessment and Plan Problem List: (1) Hypertension ICD Code: I10 Status: Chronic (2) Weakness generalized ICD Code: R53.1 Status: Acute (3) Suicidal ideation ICD Code: R45.851 Status: Acute (4) Sleep disturbance, unspecified ICD Code: G47.9 Status: Acute (5) HLD (hyperlipidemia) ICD Code: E78.5 Status: Chronic (6) COPD (chronic obstructive pulmonary disease) ICD Code: J44.9 Status: Chronic Assessment and Plan Patient is a 66-year-old male with primary medical history of anxiety , depression, HTN, HLD, GERD, COPD who came into the hospital under [place] act for making suicidal statements at the [place]. As per records, patient states that he is tired of feeling weak and for 1-2 months, he reports a 20 pound weight loss. He does report that for the last 1-2 months he has been unable to sleep at night. He reports sleeping for 15 minutes to hour and waking up frequently. He is now admitted to inpatient psychiatry unit for further evaluation. Consulted for evaluation of HTN, HLD, and weight loss over past 6 months. Suicidal statements, anxiety, depression - Managed by psychiatry team Weight loss - Patient did not elaborate on weight loss but as per records, patient states that he had 20 pound weight loss in 6 months - Based on review of records since 2014, patient's weight has been 85-80 kgs , which is not different from his admission weight which is 80 kg. - Weight 03/10/17 11:26 80kg and 03/10/17 20:59 77.7, a 3 pound weight loss within few hours mean some inaccuracy in the weighing measurement of the patient - Will do daily weights 3 days, same time every morning. Hypertension - Continue home medication metoprolol 25 mg twice a day - Clonidine when necessary - Spoke with nursing, states that after patient his home medication blood pressure has improved - Monitor BP trend. If continues to have elevated blood pressure, we'll add lisinopril 10 mg daily HLD - Patient is not on any statin medication - ASCVD risk 8.8%, 23.7% 10 year risk, recommended for moderate to high intensity statin - Discuss with patient, start with atorvastatin 20 mg daily COPD, not in exacerbation - DuoNeb's when necessary DVT prop ambulatory Code Status Full code Discussed Condition With Patient, nursing Linda Hoyos Mar 11, 2017 16:23 Micki Preciado MD Mar 12, 2017 11:55
[2017-03-11 16:30] VITALS: BP 176/97; PULSE 62; RESP 16; TEMP 97.6; O2SAT 96
--- NOTE | 2017-03-11 16:55 | HHI.HP ---
Provisional Diagnosis Admission Date Mar 10, 2017 at 18:33 [place] I. Major depressive disorder, single episode, severe without psychotic features, rule out bipolar II; opiate use disorder by history [place] II. deferred [place] III. Hypertension, hyperlipidemia, asthma, hepatitis C, [place] IV. limited social support, hx of chemical dependence, [place] V. 35 Certification of Person's Competence To Provide Express and Informed Consent I have personally examined Pepito Robles , a person being served at [facility] on, Mar 11, 2017 16:13. Express and informed consent means consent voluntarily given in writing, by a competent person, after sufficient explanation and disclosure of the subject matter involved to enable the person to make a knowing and willful decision without any element of force, fraud, deceit, duress, or other form of constraint or coercion. This person is 18 years of age or older, is not now known to be incompetent to consent to treatment with a guardian advocate, and does not have a health care surrogate or proxy currently making medical treatment decisions. I have found this person to be one of the following: [x] Competent to provide express and informed consent, as defined above, for voluntary admission to this facility and is competent to provide express and informed consent for treatment. He/she has the consistent capacity to make well reasoned, willful, and knowing decisions concerning his or her medical or mental health treatment. The person fully and consistently understands the purpose of the admission for examination/placement and is fully capable of personally exercising all rights assured [place] Incompetent to provide express and informed consent to voluntary admission, and this is incompetent to provide express and informed consent to treatment. The person must be transferred to involuntary status and a petition for a guardian advocate filed with the Circuit Court. [] Refusing to provide express and informed consent to voluntary admission but is competent to provide express and informed consent for treatment. The person must be discharged or transferred to involuntary status. Form shall be completed within 24 hours of a person's arrival at the receiving facility and filed in the clinical record of each person: 1. Admitted on a voluntary basis 2. Permitted to provide express and informed consent to his/her own treatment 3. Allowed to transfer from involuntary to voluntary status 4. Prior to permitting a person to consent to his or her own treatment after having been previously found incompetent to consent to treatment. History of Present Illness Capacity: Has Capacity HPI Patient is a 66-year-old man single domicile alone, unemployed currently on social security benefits, has a brother in the area, past psychiatric history of depression, anxiety disorder, ptsd, nicotine use disorder , opiate use disorder (previously on MMTP), no previous psychiatric hospitalizations no previous suicide attempt or self-injurious behavior who was brought into the emergency department yesterday under the [place] for [facility]. As per ER note patient stated he was tired of feeling weak and made suicidal statements in order to get help. He also reported feeling weak for the past 1-2 months, unable to sleep at night, and a 20 pound weight loss but denied any visual auditory hallucinations. As per chart patient had been seen twice over the past month for the same complaint. Patient was transferred to the inpatient psychiatric unit for further evaluation and management. Patient was seen today with nurse, found lying on a hospital bed initially guarded but was later more cooperative and engaging in interview. Patient states they have been feeling tired for the past 2 months and had come to the emergency room recently for the same reason. He reports that he has a primary care doctor [facility] him 9 months [facility]. Patient reports that his mood lately has been irritable decreased sleep for the past 1-2 weeks, reporting having problems initiating and maintaining sleep. Patient states that when he gets up at night after difficulty maintaining sleep he reports doing nothing. Patient reports decreased energy and concentration and pleasure in activities, but denies any change in appetite. 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 He also reports that recently he has been having suicidal ideations that have been occurring for the past couple of weeks which last a couple of minutes and has thought of several methods via hanging, car crash, overdose but but denies having had a specific plan or intention. Patient at this time denies any current suicidal ideations and states that his reason to live would be for his health and to get better. Currently states feeling better than the past couple of days, denies suicidal or homicidal ideations at this time, denies any auditory or visual hallucinations, denies any delusions. Patient states that he would like a place to go to take care of me. Past psychiatric history: Patient with a previous psychiatric diagnoses of depression, anxiety, PTSD. Denies any previous psychiatric hospitalizations, denies any previous suicide attempts, denies any self-injurious behavior. Patient reports that he had once seen a psychiatrist since 12 years ago after an ex-girlfriend had left him. He states that he was started on antidepressant (unspecified) and had last taken that medication about 12 years ago. He also states that he was prescribed Xanax 0.5 mg when necessary breakthrough anxiety by his primary care doctor one year ago but has been one year since he has last taken. Patient denies any history of sexual or physical abuse. Substance use history: Tobacco use about 7-8 cigarettes daily, occasional alcohol use, last use was a couple of weeks ago. Reports occasional marijuana use, reports heroine use at the age of 21 for 6 months, reports prescription opioid use for 1-1/2 years, was was connected to a methadone clinic where she was receiving 70 mg of methadone daily last use was 3 months ago. Elroy also reports having had cocaine use years ago. 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 Patient has a brother living in the area which she has contact with over the phone. Review of Systems Constitutional: DENIES: Diaphoretic episodes, Fatigue, Fever, Weight gain, Weight loss, Chills, Dizziness, Change in appetite, Night Sweats Endocrine: DENIES: Heat/cold intolerance, Polydipsia, Polyuria, Polyphagia Eyes: DENIES: Blurred vision, Diplopia, Eye inflammation, Eye pain, Vision loss , Photosensitivity, Double Vision Ears, nose, mouth, throat: DENIES: Tinnitus, Hearing loss, Vertigo, Nasal discharge, Oral lesions, Throat pain, Hoarseness, Ear Pain, Running Nose, Epistaxis, Sinus Pain, Toothache, Odynophagia Respiratory: DENIES: Apneas, Cough, Snoring, Wheezing, Hemoptysis, Sputum production, Shortness of breath Gastrointestinal: DENIES: Abdominal pain, Black stools, Bloody stools, Constipation, Diarrhea, Nausea, Vomiting, Difficulty Swallowing, Anorexia Genitourinary: DENIES: Sexual dysfunction, Urinary frequency, Urinary incontinence, Urgency, Hematuria, Dysuria, Nocturia, Penile Discharge, Testicular Pain, Testicular Swelling Musculoskeletal: DENIES: Joint pain, Muscle aches, Stiffness, Joint Swelling, Back pain, Neck pain Integumentary: DENIES: Abnormal pigmentation, Nail changes, Pruritus, Rash Hematologic/lymphatic: DENIES: Bruising, Lymphadenopathy Immunologic/allergic: DENIES: Eczema, Urticaria Neurologic: DENIES: Abnormal gait, Headache, Localized weakness, Paresthesias, Seizures, Speech Problems, Tremor, Poor Balance Psychiatric: COMPLAINS OF: Depression Past Psych History Psychological trauma history Patient denies any sexual or physical abuse in the past. Violence risk - others (6 mos) Low Violence risk - self (6 mos) Moderate acute risk Substance Abuse History Drugs/Alcohol past 12 months Patient previously on methadone 70 mg, last received 3 months ago. Patient with history of prescription opioid use. Patient with marijuana use. Past Family Social History Coded Allergies: No Known Allergies (Verified , 03/10/17) Reported Medications Metoprolol Tartrate 25 Mg Tab25 Mg PO BID #60 TAB Ref 0 02/11/17 Discontinued Reported Medications Simvastatin (Zocor)40 Mg Tab40 Mg PO HS #30 TAB Ref 0 02/11/17 Current Medications Medications (Trade) Dose Ordered Sig/Epifanio Route Start Time Stop Time Status Last Admin (Ativan) 0.5 mg Q12H PRN PO 03/10/17 21:15 03/11/17 12:24 (Ativan Inj) 0.5 mg Q12H PRN IM 03/10/17 21:15 03/11/17 01:10 (Benadryl) 50 mg HS PRN PO 03/10/17 21:15 03/10/17 21:16 (Benadryl Inj) 50 mg HS PRN IM 03/10/17 21:15 (Tylenol) 650 mg Q4H PRN PO 03/10/17 21:15 (Milk Of Magnesia Liq) 30 ml DAILY PRN PO 03/10/17 21:15 (Mag-Al Plus Susp Liq) 30 ml Q6H PRN PO 03/10/17 21:15 (Habitrol 21 Mg Patch.24 Hr) 1 patch DAILY T-DERMAL 03/11/17 09:00 Miscellaneous Information 1 HS T-DERMAL 03/11/17 21:00 (Lopressor) 25 mg BID PO 03/10/17 21:15 03/11/17 08:41 (Zoloft) 50 mg DAILY PO 03/12/17 09:00 (Pill Splitter) 1 ea UNSCH PRN OTHER 03/11/17 12:45 Family History Patient denies any family history of mental illness. 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 Patient has a sibling (brother) in the area which he is in contact with via telephone. Patient's Strengths (min. 2) Verbal, communicative, Physical Exam Physical exam completed by ED provider. On my examination today, the patient appears to be in no acute physical distress. No motor abnormalities noted. Labs and vitals reviewed: Vital Signs Vital Signs Date Time Temp Pulse Resp B/P Pulse Ox O2 Delivery O2 Flow Rate FiO2 03/11/17 11:06 63 134/78 03/11/17 06:15 98.2 18 98 Lab Results Laboratory Tests Test 03/10/17 11:25 White Blood Count 9.2 TH/MM3 Red Blood Count 4.94 MIL/MM3 Hemoglobin 15.4 GM/DL Hematocrit 45.5 % Mean Corpuscular Volume 92.1 FL Mean Corpuscular Hemoglobin 31.1 PG Mean Corpuscular Hemoglobin 33.8 % Concent Red Cell Distribution Width 14.3 % Platelet Count 330 TH/MM3 Mean Platelet Volume 7.5 FL Neutrophils (%) (Auto) 52.3 % Lymphocytes (%) (Auto) 40.0 % Monocytes (%) (Auto) 5.3 % Eosinophils (%) (Auto) 1.5 % Basophils (%) (Auto) 0.9 % Neutrophils # (Auto) 4.8 TH/MM3 Lymphocytes # (Auto) 3.7 TH/MM3 Monocytes # (Auto) 0.5 TH/MM3 Eosinophils # (Auto) 0.1 TH/MM3 Basophils # (Auto) 0.1 TH/MM3 CBC Comment DIFF FINAL Differential Comment Sodium Level 139 MEQ/L Potassium Level 4.0 MEQ/L Chloride Level 106 MEQ/L Carbon Dioxide Level 23.6 MEQ/L Anion Gap 9 MEQ/L Blood Urea Nitrogen 6 MG/DL Creatinine 0.97 MG/DL Estimat Glomerular Filtration 77 ML/MIN Rate Random Glucose 87 MG/DL Calcium Level 9.2 MG/DL Total Bilirubin 0.5 MG/DL Aspartate Amino Transf 24 U/L (AST/SGOT) Alanine Aminotransferase 32 U/L (ALT/SGPT) Alkaline Phosphatase 84 U/L Total Protein 7.7 GM/DL Albumin 3.4 GM/DL Mental Status Examination Patient appears stated age, found lying in hospital bed in [facility], fair hygiene, mildly disheveled, calm and cooperative with interview, no psychomotor agitation or retardation noted, eye contact fair Speech: Other (normal rate and tone and prosody) Orientation: x3 Memory: Unremarkable Thought Process: Logical, Organized Thought Content: Unremarkable Language Fluid and spontaneous Fund of Knowledge Fair Hallucination Type: None Attention and Concentration: Good Suicidal Ideation: No Previous Suicide Attempts: No Homicidal Ideation: No Previous Homicide Attempts: No Insight: Fair Judgment: WNL Affect: Sad (dysthymic) Mood: Sad Motor Activity: Normal gait Assessment & Plan Problem List: (1) Major depressive disorder without psychotic features ICD Code: F32.9 Assessment & Plan Estimated LOS: 5-7days. Patient is a 66-year-old man, single, domiciled alone, unemployed, currently on social security benefits, with past psychiatric history of depression, anxiety disorder,nicotine use disorder, opiate use disorder (previously on MMTP), no previous psychiatric hospitalizations no previous suicide attempt or self-injurious behavior who was brought into the emergency department yesterday under the [place] for [facility] statements [facility] the [facility]. patient currently endorsing depressive symptoms for the past several months along with suicidal ideations with no specific plan or intent for the past week in the context of several psychosocial stressors. Patient at this time is at elevated risk for self-harm due to current risk factors including age, race, recent depressive symptoms, suicidal ideations, recent losses (finances businesses), limited social support, and history of chemical dependence despite no history of previous suicide attempts or self- injurious behavior. Patient at this time will require inpatient psychiatric level of care for stabilization for safety. Patient has decided to sign in voluntarily for treatment. Plan: Start sertraline 25 mg by mouth daily with upward titration for depression. Patient will continue to be monitored while on the unit. Patient to participate in individual and group therapy. Hospitalist consult placed. Brief supportive psychotherapy provided. Psychoeducation provided. Patient agrees with plan. Discharge Planning In process Request HC Surrog/Guard Advoc?: No Problem Qualifiers (1) Major depressive disorder without psychotic features: Jose L Emerson MD Mar 11, 2017 16:55
[2017-03-11] MEDS ORDERED: cloNIDine HCL 0.1 MG TAB PO PRN (17:15)
[2017-03-11] MEDS: ATORVASTATIN 20 MG TAB PO SCH (18:00)
[2017-03-11 18:12] LABS: HEMOGLOBIN A1b 1.3 %; HEMOGLOBIN Ao 86.7 %; HEMOGLOBIN F 0.2 %; HEMOGLOBIN LA1C 1.7 %; HEMOGLOBIN P3 3.3 %
[2017-03-11] MEDS: traZODone HCL 50 MG TAB PO PRN (20:14)
[2017-03-11] MEDS: REMOVE OLD NICOTINE PATCH T-DERMAL SCH (21:00)
[2017-03-12 05:44] VITALS: BP 168/84; PULSE 68; RESP 16; TEMP 98.3; O2SAT 96
[2017-03-12] MEDS: ATORVASTATIN 20 MG TAB PO SCH (08:49)
[2017-03-12] MEDS: METOPROLOL TARTRATE 25 MG TAB PO SCH ×2 (08:49→19:35)
[2017-03-12] MEDS: NICOTINE 21 MG/24 HR PATCH T-DERMAL SCH (08:50)
[2017-03-12] MEDS ORDERED: SERTRALINE HCL 50 MG TAB PO SCH (09:00)
[2017-03-12] MEDS: LORazepam 0.5 MG TAB age > 65 yrs PO PRN (12:04)
[2017-03-12 13:11] VITALS: BP 126/76; PULSE 61
[2017-03-12] MEDS: LISINOPRIL 20 MG TAB PO SCH (13:23)
[2017-03-12 17:29] VITALS: BP 157/72; PULSE 76; RESP 16; TEMP 98.2; O2SAT 92
--- NOTE | 2017-03-12 18:46 | HHI.PYPN ---
Subjective Remarks Patient is a 66-year-old man single domicile alone, unemployed currently on social security benefits, has a brother in the area, past psychiatric history of depression, anxiety disorder, ptsd, nicotine use disorder , opiate use disorder (previously on MMTP), no previous psychiatric hospitalizations no previous suicide attempt or self-injurious behavior who was brought into the emergency department yesterday under the [place] for making suicidal statements at the [facility]. Patient was seen by hospitalist consult with recommendations to monitor daily weights the next 3 days as patient had reported some weight loss. Antihypertensive medications were optimized as well as starting of statin for hyperlipidemia. Patient seen today for follow-up; chart reviewed. Patient was found in room sitting on a hospital chair, continued to be guarded with interview. Patient states that he has slept well last night and that his appetite has been okay, reports that his mood lately has been I feel anxious, states that his energy is a little better, concentration same, continues report feelings sad and depressed with passive suicidal ideations. He states that he had attended a group yesterday which she enjoyed and wasnt sure whether he was going attended group today. Patient was encouraged to participate in therapy and individual and group during his stay here. Patient acknowledged and stated that he would try. Patient continues to worry about living alone, with no one to talk to. She states that he cannot go back to where he lived, Im alone. Currently patient states feeling okay denies any suicidal or homicidal ideations at this time denies any perceptual disturbances or delusions. Review of Systems Other No somatic complaints Objective Alert: Yes [place]: Person, Place, Date, Situation Mood: Depressed Affect: Other (dysthymic) Memory Intact: Immediate, Recent, Remote Hallucinations: Other (no auditory or visual hallucinations) Delusions: No Delusion Type: Other (no delusions) Suicidal: Ideation Homicidal: Ideation Insight/Judgment Insight: Limited, judgment: Fair Vitals/IOs Vital Signs Date Time Temp Pulse Resp B/P Pulse Ox O2 Delivery O2 Flow Rate FiO2 03/12/17 17:29 98.2 76 16 157/72 92 Assessment & Plan Problem List: (1) Major depressive disorder without psychotic features ICD Code: F32.9 Assessment & Plan Estimated LOS: 5-7 days. Patient is a 66-year-old man single domicile alone, unemployed currently on social security benefits, has a brother in the area, past psychiatric history of depression, anxiety disorder, ptsd, nicotine use disorder , opiate use disorder (previously on MMTP), no previous psychiatric hospitalizations no previous suicide attempt or self-injurious behavior who was brought into the emergency department yesterday under the [place] for making [facility] statements at the [facility]. patient continues to report depressive symptoms and anxiety but continues with passive suicidal ideations. Patient continues to be at risk for self-harm and continues to require inpatient stabilization. Plan: Sertraline 100 mg by mouth daily with upward titration for depression. Patient will continue to be monitored while on the unit. Patient encouraged to participate in individual and group therapy. Brief supportive psychotherapy provided. Psychoeducation provided. Justification for Cont. Inpt. Patient continued to endorse depressive symptoms along with suicidal ideations. Patient continues to be at acute risk for self-harm and will require continued inpatient psychiatric stabilization. Discharge Planning In progress Request HC Surrog/Guard Advoc?: No Problem Qualifiers (1) Major depressive disorder without psychotic features: Jose L Emerson MD Mar 12, 2017 18:46
[2017-03-12] MEDS: REMOVE OLD NICOTINE PATCH T-DERMAL SCH (19:36)
[2017-03-12] MEDS: traZODone HCL 50 MG TAB PO PRN (19:40)
[2017-03-13 06:00] VITALS: BP 150/90; PULSE 63; RESP 17; TEMP 98.7; O2SAT 96
[2017-03-13] MEDS: LORazepam 0.5 MG TAB age > 65 yrs PO PRN ×2 (06:52→22:50)
[2017-03-13] MEDS: NICOTINE 21 MG/24 HR PATCH T-DERMAL SCH (09:00)
[2017-03-13] MEDS: METOPROLOL TARTRATE 25 MG TAB PO SCH ×2 (09:50→22:48)
[2017-03-13] MEDS: LISINOPRIL 20 MG TAB PO SCH (09:50)
[2017-03-13] MEDS: ATORVASTATIN 20 MG TAB PO SCH (09:50)
[2017-03-13] MEDS: SERTRALINE HCL 100 MG TAB PO SCH (10:46)
--- NOTE | 2017-03-13 14:19 | HHI.PR ---
Subjective Remarks Follow-up visit HTN, HLD, weakness. Patient is an eczematous today. Reports generalized weakness. States he's been tested before for everything but cannot find anything that is wrong with him. States he doesn't have trouble with walking but he still does feel weak. Otherwise, denies pain and discomfort. Denies SOB/ dyspnea. Denies chest pain, palpitations, headaches, dizziness. Denies fevers, chills, n/v/d. Denies dysuria. Objective Vitals Vital Signs Date Time Temp Pulse Resp B/P Pulse Ox O2 Delivery O2 Flow Rate FiO2 03/13/17 06:00 98.7 63 17 150/90 96 03/12/17 17:29 98.2 76 16 157/72 92 Result Diagram: 03/10/17 1125 03/11/17 0703 Objective Remarks GENERAL: This is a well-nourished, well-developed patient, in no apparent distress. SKIN: Warm and dry. HEAD: Normocephalic. EYES: Pupils equal round and reactive. No scleral icterus. No injection or drainage. ENT: Nose without bleeding. Throat without erythema. Uvula midline. Airway patent. NECK: Trachea midline. CARDIOVASCULAR: Regular rate and rhythm without murmurs, gallops, or rubs. RESPIRATORY: Clear to auscultation. Breath sounds equal bilaterally. No wheezes , rales, or rhonchi. GASTROINTESTINAL: Abdomen soft, non-tender, nondistended. No guarding. Bowel sounds active 4 MUSCULOSKELETAL: Extremities without clubbing, cyanosis, or edema. NEUROLOGICAL: Awake and alert. Motor and sensory grossly within normal limits. Normal speech. A/P Problem List: (1) Hypertension ICD Code: I10 Status: Chronic (2) Weakness generalized ICD Code: R53.1 Status: Acute (3) Suicidal ideation ICD Code: R45.851 Status: Acute (4) Sleep disturbance, unspecified ICD Code: G47.9 Status: Acute (5) HLD (hyperlipidemia) ICD Code: E78.5 Status: Chronic (6) COPD (chronic obstructive pulmonary disease) ICD Code: J44.9 Status: Chronic Assessment and Plan Patient is a 66-year-old male with primary medical history of anxiety , depression, HTN, HLD, GERD, COPD who [facility] [place] [facility] As per records, patient states that he is tired of feeling weak and for 1-2 months, he reports a 20 pound weight loss. He does report that for the last 1-2 months he has been unable to sleep at night. He reports sleeping for 15 minutes to hour and waking up frequently. He is now admitted to inpatient psychiatry unit for further evaluation. Consulted for evaluation of HTN, HLD, and weight loss over past 6 months. Suicidal statements, anxiety, depression - Managed by psychiatry team Weight loss - Patient did not elaborate on weight loss but as per records, patient states that he had 20 pound weight loss in 6 months - Based on review of records since 2014, patient's weight has been 85-80 kgs , which is not different from his admission weight which is 80 kg. - Weight 03/10/17 11:26 80kg and 03/10/17 20:59 77.7, a 3 pound weight loss within few hours mean some inaccuracy in the weighing measurement of the patient - Will do daily weights 3 days, same time every morning. Gen weakness - Check Vit B, D, levels - Check TSH Hypertension - Continue home medication metoprolol 25 mg twice a day, added lisinopril 20mg daily - Clonidine when necessary - Monitor BP trend. HLD - Patient is not on any statin medication - ASCVD risk 8.8%, 23.7% 10 year risk, recommended for moderate to high intensity statin - atorvastatin 20 mg daily COPD, not in exacerbation - DuoNeb's when necessary DVT prop ambulatory Full code Discussed Condition With Patient, nursing, Linda Mcelroy Mar 13, 2017 14:19
--- NOTE | 2017-03-13 15:32 | HHI.PYPN ---
Subjective Remarks Pt seen and discussed with staff. He has been isolating to room and has stayed in bed most of the day. He remains depressed and denies SI/HI. He states that he is feeling "stronger" today. He is compliant with meds and denies side effects. No SI/HI Objective Alert: Yes [place]: Person, Place, Date, Situation Mood: Depressed Affect: Other (dysthymic) Memory Intact: Immediate, Recent, Remote Hallucinations: Other (no auditory or visual hallucinations) Delusions: No Delusion Type: Other (no delusions) Suicidal: Ideation Homicidal: Ideation Insight/Judgment limited Vitals/IOs Vital Signs Date Time Temp Pulse Resp B/P Pulse Ox O2 Delivery O2 Flow Rate FiO2 03/13/17 06:00 98.7 63 17 150/90 96 Assessment & Plan Problem List: (1) Major depressive disorder without psychotic features ICD Code: F32.9 Assessment & Plan Continue current tx plan. Estimated LOS: days Justification for Cont. Inpt. monitoring for safety Request HC Surrog/Guard Advoc?: No Problem Qualifiers (1) Major depressive disorder without psychotic features: Dee Castellanos MD Mar 13, 2017 15:32
[2017-03-13 18:37] VITALS: BP 174/90; PULSE 76; RESP 18; TEMP 98.4; O2SAT 95
[2017-03-13] MEDS: REMOVE OLD NICOTINE PATCH T-DERMAL SCH (21:00)
[2017-03-13] MEDS: traZODone HCL 50 MG TAB PO PRN (22:47)
[2017-03-14 06:09] VITALS: BP 154/80; PULSE 62; RESP 16; TEMP 97.2; O2SAT 98
[2017-03-14] MEDS: NICOTINE 21 MG/24 HR PATCH T-DERMAL SCH (09:00)
[2017-03-14] MEDS ORDERED: METOPROLOL TARTRATE 50 MG TAB PO SCH (09:00)
[2017-03-14] MEDS: SERTRALINE HCL 100 MG TAB PO SCH (09:16)
[2017-03-14] MEDS: ATORVASTATIN 20 MG TAB PO SCH (09:17)
[2017-03-14] MEDS: LISINOPRIL 20 MG TAB PO SCH ×2 (09:17→20:55)
[2017-03-14] MEDS: METOPROLOL TARTRATE 25 MG TAB PO SCH ×2 (09:52→20:55)
[2017-03-14] MEDS: LORazepam 0.5 MG TAB age > 65 yrs PO PRN (11:59)
--- NOTE | 2017-03-14 15:26 | HHI.PYPN ---
Subjective Remarks Pt seen and discussed with staff. He has been compliant with medications. He denies AH today. He remains isolative to room but did come out into milieu briefly. Refused breakfast but did eat lunch.He reports SI this morning but that "I didnt stay thinking on it." Objective Alert: Yes [place]: Person, Place, Date, Situation Mood: Depressed Affect: Other (dysthymic) Memory Intact: Immediate, Recent, Remote Hallucinations: Other (no auditory or visual hallucinations) Delusions: No Delusion Type: Other (no delusions) Suicidal: Ideation (denies) Homicidal: Ideation (denies) Insight/Judgment poor Labs Test 03/14/17 09:00 Vitamin B12 Level 331 PG/ML 25-Hydroxy Vitamin D Total 12.0 ng/ML Thyroid Stimulating Hormone 1.070 uIU/ML 3rd Gen Vitals/IOs Vital Signs Date Time Temp Pulse Resp B/P Pulse Ox O2 Delivery O2 Flow Rate FiO2 03/14/17 06:09 97.2 62 16 154/80 98 Assessment & Plan Problem List: (1) Major depressive disorder without psychotic features ICD Code: F32.9 Assessment & Plan Continue current tx plan. Estimated LOS: days Justification for Cont. Inpt. risk of decompensation Request HC Surrog/Guard Advoc?: No Problem Qualifiers (1) Major depressive disorder without psychotic features: Qualified Code: F32.2 - Severe single current episode of major depressive disorder, without psychotic features Dee Castellanos MD Mar 14, 2017 15:26
[2017-03-14 16:50] VITALS: BP 176/81; PULSE 65; RESP 18; TEMP 97.4; O2SAT 98
[2017-03-14] MEDS: REMOVE OLD NICOTINE PATCH T-DERMAL SCH (21:00)
[2017-03-14] MEDS: traZODone HCL 50 MG TAB PO PRN (21:02)
[2017-03-15 06:00] VITALS: BP 164/74; PULSE 59; RESP 18; TEMP 97.6; O2SAT 96
[2017-03-15] MEDS: METOPROLOL TARTRATE 25 MG TAB PO SCH ×2 (08:51→20:48)
[2017-03-15] MEDS: CHOLECALCIFEROL (VIT D3) 1000 UNIT TAB PO SCH (08:51)
[2017-03-15] MEDS: SERTRALINE HCL 100 MG TAB PO SCH (08:51)
[2017-03-15] MEDS: ATORVASTATIN 20 MG TAB PO SCH (08:52)
[2017-03-15] MEDS: NICOTINE 21 MG/24 HR PATCH T-DERMAL SCH (08:52)
[2017-03-15] MEDS: LISINOPRIL 20 MG TAB PO SCH ×2 (08:52→20:48)
[2017-03-15] MEDS: LORazepam 0.5 MG TAB age > 65 yrs PO PRN ×2 (08:53→20:49)
--- NOTE | 2017-03-15 12:55 | HHI.PR ---
Subjective Remarks The patient is in bed he appears sleepy. Says he works in the morning and now is taking a nap. He feels tired. He denies having any headaches, change in vision, motor deficit. No chest pain or shortness of breath. No palpitations or lightheadedness. Objective Vitals Vital Signs Date Time Temp Pulse Resp B/P Pulse Ox O2 Delivery O2 Flow Rate FiO2 03/15/17 06:00 97.6 59 18 164/74 96 03/14/17 16:50 97.4 65 18 176/81 98 Result Diagram: 03/11/17 0703 Objective Remarks GENERAL: This is a well-nourished, well-developed patient, in no apparent distress. CARDIOVASCULAR: Regular rate and rhythm without murmurs, gallops, or rubs. RESPIRATORY: Clear to auscultation. Breath sounds equal bilaterally. No wheezes , rales, or rhonchi. GASTROINTESTINAL: Abdomen soft, non-tender, nondistended. No guarding. Bowel sounds active 4 MUSCULOSKELETAL: Extremities without clubbing, cyanosis, or edema. NEUROLOGICAL: Awake and alert. Motor and sensory grossly within normal limits. Normal speech. A/P Problem List: (1) Hypertension ICD Code: I10 Status: Chronic (2) Weakness generalized ICD Code: R53.1 Status: Acute (3) Suicidal ideation ICD Code: R45.851 Status: Acute (4) Sleep disturbance, unspecified ICD Code: G47.9 Status: Acute (5) HLD (hyperlipidemia) ICD Code: E78.5 Status: Chronic (6) COPD (chronic obstructive pulmonary disease) ICD Code: J44.9 Status: Chronic Assessment and Plan Patient is a 66-year-old male with primary medical history of anxiety , depression, HTN, HLD, GERD, COPD who came into the hospital under [place] act for making suicidal statements at the [place]. As per records, patient states that he is tired of feeling weak and for 1-2 months, he reports a 20 pound weight loss. He does report that for the last 1-2 months he has been unable to sleep at night. He reports sleeping for 15 minutes to hour and waking up frequently. He is now admitted to inpatient psychiatry unit for further evaluation. Consulted for evaluation of HTN, HLD, and weight loss over past 6 months. Suicidal statements, anxiety, depression - Managed by psychiatry team Weight loss Patient did not elaborate on weight loss but as per records, patient states that he had 20 pound weight loss in 6 months Based on review of records since 2014, patient's weight has been 85-80 kgs, which is not different from his admission weight which is 80 kg. Weight 03/10/17 11:26 80kg and 03/10/17 20:59 77.7, a 3 pound weight loss within few hours mean some inaccuracy in the weighing measurement of the patient Will do daily weights 3 days, same time every morning. Gen weakness Vitamin D deficiency (vit D of 15) start vit D supplement. Check Vit B, D, levels Check TSH normal Hypertension Continue home medication metoprolol 25 mg twice a day, increased lisinopril to 20mg daily. Monitor BP and adjust meds as need. Clonidine when necessary Monitor BP trend. HLD Patient is not on any statin medication ASCVD risk 8.8%, 23.7% 10 year risk, recommended for moderate to high intensity statin atorvastatin 20 mg daily COPD, not in exacerbation- DuoNeb's when necessary DVT prop ambulatory Full code Discussed with the patient, nurse Micki Preciado MD Mar 15, 2017 12:54
[2017-03-15 15:59] VITALS: BP 141/82; PULSE 67; RESP 18; TEMP 98.2; O2SAT 95
--- NOTE | 2017-03-15 19:38 | HHI.PYPN ---
Subjective Remarks Patient is a 66-year-old man single domicile alone, unemployed currently on social security benefits, has a brother in the area, past psychiatric history of depression, anxiety disorder, ptsd, nicotine use disorder , opiate use disorder (previously on MMTP), no previous psychiatric hospitalizations no previous suicide attempt or self-injurious behavior who was brought into the emergency department yesterday under the [place] act for making suicidal statements at the [place]. Patient was seen by medical team on 03/13/17 and reported feeling weak which patient also reported weight loss. Patient had been getting weight checks and continue to be monitored for the same. Labs: TSH and vitamin levels were ordered. Patient other weekend noted to be isolative, in bed most of the days and had reported feeling depressed but stronger. Patient noted to be briefly out of the room and continued to report suicidal ideations. As per nursing report this morning patient noted to be guarded, restrictive affect. Patient has not been attending groups or activities and has denied any suicidality actions. Patient found eating lunch but was able to speak with xander and nurse for follow-up: Chart reviewed. Patient states that hell be feeling a bit anxious and that the medications (Ativan) doesnt work. He reports that his mood is 4 out of 10 which 10 being his best. He states that he is feeling stronger but continued to not attending groups. He reports that he was visited by his brother and sister which she had a good visit. He reports improved energy and appetite with decreased suicide ideation but continues to have suicidal thoughts which last minutes last time being this morning. Currently patient states feeling stronger, denies SI at this time denies homicidal ideations, perceptual disturbances, or delusions. Collateral information: Sandra and Blue (siblings) met with xander and counselor reported that patient had been struggling for the past couple of years after the of his close friend which he received some money and had subsequently lost his everything. They reportedly had visited with the patient last Wednesday and seemed to okay but yesterday after visitation patient looked exhausted. They reportedly had gone to his home and was found to be unkempt and poor living conditions. The sister states that one month ago patient expressed suicidal thoughts of jumping from a bridge and one week prior to admission again expressed suicidal ideations. They state wanting the patient to go to a supervised setting as they feel he will not do well on his own. Review of Systems Except as stated in HPI: all other systems reviewed are Neg Other No other somatic complaints Objective Alert: Yes [place]: Person, Place, Date, Situation Mood: Depressed Affect: Other (dysthymic) Memory Intact: Immediate, Recent, Remote Hallucinations: Other (no auditory or visual hallucinations) Delusions: No Delusion Type: Other (no delusions) Suicidal: Ideation (denies) Homicidal: Ideation (denies) Insight/Judgment Limited insight, fair impulse control, poor judgment Vitals/IOs Vital Signs Date Time Temp Pulse Resp B/P Pulse Ox O2 Delivery O2 Flow Rate FiO2 03/15/17 15:59 98.2 67 18 141/82 95 Assessment & Plan Problem List: (1) Major depressive disorder without psychotic features ICD Code: F32.9 Assessment & Plan Patient is a 66-year-old man single domicile alone, unemployed currently on social security benefits, has a brother in the area, past psychiatric history of depression, anxiety disorder, ptsd, nicotine use disorder , opiate use disorder (previously on MMTP), no previous psychiatric hospitalizations no previous suicide attempt or self-injurious behavior who was brought into the emergency department yesterday under the [place] act for making suicidal statements at the [place]. Patient although reports feeling stronger he continues to endorse depressive symptoms and anxiety along with passive suicidal ideations. Patient continues to be at risk for self-harm and continues to require inpatient stabilization. Plan: Increase Sertraline 150 mg by mouth daily with upward titration for depression. Start bupropion 100 by mouth daily. Patient encouraged to participate in individual and group therapy. Brief supportive psychotherapy provided. Psychoeducation provided. Discharge planning process Justification for Cont. Inpt. Patient at risk for further decompensation at a lower level of care. continues to require inpatient level of care for stabilization. Discharge Planning In process Request HC Surrog/Guard Advoc?: No Problem Qualifiers (1) Major depressive disorder without psychotic features: Qualified Code: F32.2 - Severe single current episode of major depressive disorder, without psychotic features Jose L Emerson MD Mar 15, 2017 19:38
[2017-03-15] MEDS: REMOVE OLD NICOTINE PATCH T-DERMAL SCH (21:00)
[2017-03-15] MEDS: traZODone HCL 50 MG TAB PO PRN (21:44)
[2017-03-16 05:33] VITALS: BP 168/81; PULSE 54; RESP 17; TEMP 97.9; O2SAT 96
[2017-03-16] MEDS: NICOTINE 21 MG/24 HR PATCH T-DERMAL SCH (09:00)
[2017-03-16] MEDS: CHOLECALCIFEROL (VIT D3) 1000 UNIT TAB PO SCH (09:18)
[2017-03-16] MEDS: LISINOPRIL 20 MG TAB PO SCH ×2 (09:18→20:48)
[2017-03-16] MEDS: METOPROLOL TARTRATE 25 MG TAB PO SCH ×2 (09:18→20:48)
[2017-03-16] MEDS: buPROPion HCL 100 MG TAB PO SCH (09:18)
[2017-03-16] MEDS: SERTRALINE HCL 100 MG TAB PO SCH (09:18)
[2017-03-16] MEDS: ATORVASTATIN 20 MG TAB PO SCH (09:18)
[2017-03-16 15:25] VITALS: BP 167/97; PULSE 121; RESP 18; TEMP 98.2; O2SAT 100
[2017-03-16] MEDS: LORazepam 0.5 MG TAB age > 65 yrs PO PRN (20:49)
[2017-03-16] MEDS: traZODone HCL 50 MG TAB PO PRN (20:49)
[2017-03-16] MEDS: REMOVE OLD NICOTINE PATCH T-DERMAL SCH (20:52)
[2017-03-17 05:37] VITALS: BP 171/87; PULSE 57; RESP 20; TEMP 97.8; O2SAT 96
--- NOTE | 2017-03-17 08:07 | HHI.PYPN ---
Subjective Remarks LATE ENTRY: NOTE FOR 03/16/17 Patient seen today for follow up; chart reviewed. As per nursing report, patient noted to be seclusive in room but slightly more interactive with nurses. Patient received Ativan as a prn @ 20:49hrs. Patient found in room, sitting on chair, calm and cooperative with interview. Patient states that earlier this morning he had a bad morning and noticed to feel shaky a little . Patient elaborates stating that he was ruminating on what went wrong in my life which had him to feeling depressed. He reports that yesterday his siblings had visited him which he states was pleasant. Patient reports sleeping ok, continues to have decreased appetite and energy, continues to report SI which occurs only in the morning. He states that will try to attend a group and go outside later today. Patient denies SI, HI, AVH or delusions at time of interview. Review of Systems Except as stated in HPI: all other systems reviewed are Neg Other denies any other somatic complaint Objective Alert: Yes [place]: Person, Place, Date, Situation Mood: Depressed Affect: Other (dysthymic) Memory Intact: Immediate, Recent, Remote Hallucinations: Other (no auditory or visual hallucinations) Delusions: No Delusion Type: Other (no delusions) Suicidal: Ideation (contniues to have passive SI) Homicidal: Ideation (denies) Insight/Judgment fair insight, fair impulse control and judgement Vitals/IOs Vital Signs Date Time Temp Pulse Resp B/P Pulse Ox O2 Delivery O2 Flow Rate FiO2 03/17/17 05:37 97.8 57 20 171/87 96 Assessment & Plan Problem List: (1) Major depressive disorder without psychotic features ICD Code: F32.9 Assessment & Plan Patient continues to endorse depressive symptom along with SI in the mornings. Patient had reported feeling better but today with depression thinking about his losses (e.g. work, finances). Patient to continue Sertraline 150mg PO daily and Bupropion 100mg PO daily. Supportive psychotherapy provided. Patient encouraged to participate in groups and activities. Discharge planning in progress. Justification for Cont. Inpt. Patient at risk for decompensation if at lower level of care Discharge Planning In process Request HC Surrog/Guard Advoc?: No Problem Qualifiers (1) Major depressive disorder without psychotic features: Qualified Code: F32.2 - Severe single current episode of major depressive disorder, without psychotic features Ki,Jose L Diamond MD Mar 17, 2017 08:07
[2017-03-17] MEDS: NICOTINE 21 MG/24 HR PATCH T-DERMAL SCH (09:00)
[2017-03-17] MEDS: METOPROLOL TARTRATE 25 MG TAB PO SCH ×2 (09:21→21:03)
[2017-03-17] MEDS: ATORVASTATIN 20 MG TAB PO SCH (09:21)
[2017-03-17] MEDS: buPROPion HCL 100 MG TAB PO SCH (09:21)
[2017-03-17] MEDS: CHOLECALCIFEROL (VIT D3) 1000 UNIT TAB PO SCH (09:22)
[2017-03-17] MEDS: SERTRALINE HCL 100 MG TAB PO SCH (09:22)
[2017-03-17] MEDS: LISINOPRIL 20 MG TAB PO SCH ×2 (09:22→21:03)
[2017-03-17] MEDS ORDERED: buPROPion HCL 100 MG TAB PO SCH (16:00)
[2017-03-17 18:02] VITALS: BP 156/83; PULSE 63; RESP 18; TEMP 98.6; O2SAT 96
--- NOTE | 2017-03-17 19:36 | HHI.PYPN ---
Subjective Remarks Patient seen for follow-up along with nurse: Chart reviewed. As per nursing report patient noted to continue to be seclusive, cooperative with staff, taking medications, and but denied suicidal or homicidal ideations. Patient found lying in hospital bed in [facility], calm and cooperative with interview. Patient states that he feels "great" he reports having slept well with increased energy and good concentration but states that he has decreased appetite. Patient states that he was able to go outside yesterday along with the group which she enjoyed feeling the pressure. Patient states that he feels currently fine, denies any suicidal homicidal ideations denies any delusions or perceptual disturbances. Patient reports he had visits from his siblings which went well. Patient reports tolerating current treatment regimen was no adverse drug reactions. Review of Systems Except as stated in HPI: all other systems reviewed are Neg Objective Alert: Yes [place]: Person, Place, Date, Situation Mood: Calm Affect: Other (slightly less dysthymic) Memory Intact: Immediate, Recent, Remote Hallucinations: Other (no auditory or visual hallucinations) Delusions: No Delusion Type: Other (no delusions) Suicidal: Ideation (contniues to have passive SI) Homicidal: Ideation (denies) Insight/Judgment Fair insight, impulse control, and judgment Vitals/IOs Vital Signs Date Time Temp Pulse Resp B/P Pulse Ox O2 Delivery O2 Flow Rate FiO2 03/17/17 18:02 98.6 63 18 156/83 96 Assessment & Plan Problem List: (1) Major depressive disorder without psychotic features ICD Code: F32.9 Assessment & Plan Estimated LOS: 5-7 days. Patient continues to endorse some depressive symptoms although appears to be improving slowly. Patient tolerating current treatment with no adverse drug reactions. Patient denies any suicidal ideations since yesterday. Patient to continue sertraline 150 mg by mouth daily and increase bupropion to 100 mg by mouth twice a day. Continue to monitor medication response and possible adverse drug reactions. Patient encouraged to improve hygiene and participate in groups and activities while on the unit. Supportive psychotherapy provided. The discharge planning in process Justification for Cont. Inpt. Patient at risk for further decompensation if it lower level of care Discharge Planning In process Request HC Surrog/Guard Advoc?: No Problem Qualifiers (1) Major depressive disorder without psychotic features: Qualified Code: F32.2 - Severe single current episode of major depressive disorder, without psychotic features Jose L Emerson MD Mar 17, 2017 19:36
[2017-03-17] MEDS: REMOVE OLD NICOTINE PATCH T-DERMAL SCH (21:00)
[2017-03-17] MEDS: traZODone HCL 50 MG TAB PO PRN (21:02)
[2017-03-17] MEDS: LORazepam 0.5 MG TAB age > 65 yrs PO PRN (21:38)
[2017-03-18 06:03] VITALS: BP 142/71; PULSE 57; RESP 16; TEMP 97.7; O2SAT 96
[2017-03-18] MEDS: SERTRALINE HCL 100 MG TAB PO SCH (08:34)
[2017-03-18] MEDS: METOPROLOL TARTRATE 25 MG TAB PO SCH ×2 (08:34→21:52)
[2017-03-18] MEDS: NICOTINE 21 MG/24 HR PATCH T-DERMAL SCH (08:34)
[2017-03-18] MEDS: CHOLECALCIFEROL (VIT D3) 1000 UNIT TAB PO SCH (08:34)
[2017-03-18] MEDS: LISINOPRIL 20 MG TAB PO SCH ×2 (08:34→21:52)
[2017-03-18] MEDS: ATORVASTATIN 20 MG TAB PO SCH (08:35)
[2017-03-18] MEDS ORDERED: buPROPion HCL 100 MG TAB PO SCH (09:00)
--- NOTE | 2017-03-18 11:05 | HHI.PR ---
Subjective Remarks Follow up on patient with HTN, COPD. Patient seen and examined today. Patient states he feels fine. He denies any acute medical complaints at this time. Denies any fever or chills. Denies any headache or vision changes. Denies any chest pain, cough or SOB. Denies any N/V or abdominal pain. Objective Vitals Vital Signs Date Time Temp Pulse Resp B/P Pulse Ox O2 Delivery O2 Flow Rate FiO2 03/18/17 06:03 97.7 57 16 142/71 96 03/17/17 18:02 98.6 63 18 156/83 96 I/O 03/17/17 03/17/17 03/17/17 03/18/17 03/18/17 03/18/17 07:00 15:00 23:00 07:00 15:00 23:00 Intake Total 360 ml Balance 360 ml Intake Oral 360 ml Objective Remarks GENERAL: This is a well-nourished, well-developed patient, in no apparent distress. Lying in hospital bed. Calm and pleasant. SKIN: Warm and dry. No rash noted. HEENT: NC/AT, EOMI, MMM. NECK: Supple. Trachea midline. CARDIOVASCULAR: Regular rate and rhythm without murmurs, gallops, or rubs. RESPIRATORY: Clear to auscultation. Breath sounds equal bilaterally. No wheezes , rales, or rhonchi. GASTROINTESTINAL: Abdomen soft, non-tender, nondistended. No guarding. Bowel sounds active 4 MUSCULOSKELETAL: Extremities without clubbing, cyanosis, or edema. NEUROLOGICAL: Awake and alert. Motor and sensory grossly within normal limits. Normal speech. Medications and IVs Current Medications Medications (Trade) Dose Ordered Sig/Epifanio Route Start Time Stop Time Status Last Admin (Ativan) 0.5 mg Q12H PRN PO 03/10/17 21:15 03/17/17 21:38 (Ativan Inj) 0.5 mg Q12H PRN IM 03/10/17 21:15 03/11/17 01:10 (Tylenol) 650 mg Q4H PRN PO 03/10/17 21:15 (Milk Of Magnesia Liq) 30 ml DAILY PRN PO 03/10/17 21:15 (Mag-Al Plus Susp Liq) 30 ml Q6H PRN PO 03/10/17 21:15 (Habitrol 21 Mg Patch.24 Hr) 1 patch DAILY T-DERMAL 03/11/17 09:00 Miscellaneous Information 1 HS T-DERMAL 03/11/17 21:00 (Pill Splitter) 1 ea UNSCH PRN OTHER 03/11/17 12:45 (Desyrel) 50 mg HS PRN PO 03/11/17 17:00 03/17/17 21:02 (Lipitor) 20 mg DAILY PO 03/11/17 18:00 03/18/17 08:35 (Catapres) 0.1 mg Q6H PRN PO 03/11/17 17:15 (Prinivil) 20 mg BID PO 03/14/17 09:00 03/18/17 08:34 (Lopressor) 25 mg BID PO 03/14/17 09:00 03/18/17 08:34 (Vitamin D3) 1,000 units DAILY PO 03/15/17 09:00 03/18/17 08:34 (Zoloft) 150 mg DAILY PO 03/16/17 09:00 03/18/17 08:34 (Wellbutrin) 100 mg BID PO 03/18/17 09:00 03/18/17 08:34 A/P Problem List: (1) Hypertension ICD Code: I10 Status: Chronic (2) Weakness generalized ICD Code: R53.1 Status: Acute (3) Suicidal ideation ICD Code: R45.851 Status: Acute (4) Sleep disturbance, unspecified ICD Code: G47.9 Status: Acute (5) HLD (hyperlipidemia) ICD Code: E78.5 Status: Chronic (6) COPD (chronic obstructive pulmonary disease) ICD Code: J44.9 Status: Chronic Assessment and Plan Patient is a 66-year-old male with primary medical history of anxiety , depression, HTN, HLD, GERD, COPD who came into the hospital under [place] for [place] statements at the [place]. As per records, patient states that he is tired of feeling weak and for 1-2 months, he reports a 20 pound weight loss. He does report that for the last 1-2 months he has been unable to sleep at night. He reports sleeping for 15 minutes to hour and waking up frequently. He is now admitted to inpatient psychiatry unit for further evaluation. Consulted for evaluation of HTN, HLD, and weight loss over past 6 months. Suicidal statements, anxiety, depression - Managed by psychiatry team Weight loss Patient did not elaborate on weight loss but as per records, patient states that he had 20 pound weight loss in 6 months Based on review of records since 2014, patient's weight has been 85-80 kgs, which is not different from his admission weight which is 80 kg. Weight 03/10/17 11:26 80kg and 03/10/17 20:59 77.7, a 3 pound weight loss within few hours mean some inaccuracy in the weighing measurement of the patient Will do daily weights 3 days, same time every morning - not done. Latest weights documented: 03/12 77.7, 03/14 78.2 and 03/18 79. Gen weakness Vitamin D deficiency Vit B 331 Vit D 12.0, continue on Vitamin D supplementation TSH normal Hypertension Continue home medication metoprolol 25 mg twice a day, increased lisinopril to 20mg BID. Monitor BP and adjust meds as need. Clonidine when necessary Monitor BP trend. HLD Patient is not on any statin medication ASCVD risk 8.8%, 23.7% 10 year risk, recommended for moderate to high intensity statin atorvastatin 20 mg daily COPD, not in exacerbation DuoNeb's when necessary DVT prop ambulatory Full code Patient is medically stable at this time. Will sign off. Please reconsult if needed. Discussed with the patient, nursing staff and Kate Birmingham Mar 18, 2017 11:04
[2017-03-18] MEDS: LORazepam 0.5 MG TAB age > 65 yrs PO PRN (14:16)
[2017-03-18] MEDS: buPROPion HCL 100 MG TAB PO SCH (17:12)
--- NOTE | 2017-03-18 19:27 | HHI.PYPN ---
Subjective Remarks Patient seen for follow-up, chart reviewed. As per nursing report patient continues to be noted to be isolative, with unkempt appearance. Patient was seen in hospital bed lying down but able to engage in interview. Patient states that he has been feeling much better this morning. He states that he has yet but is very group but did take a shower yesterday and attempted to shave and was requesting clippers to the L2 shave completely. Patient currently noted to be more reactive with affect smiling on number of occasions. Patient encouraged to participate in group activities which she states she will try to do patient also reports that he will client-side enjoyed the group for activities outside. Patient continues to report feeling sad, reports having vague suicidal ideations and a morning but lasting only about 10 minutes. At this time patient reports feeling okay denies any suicidal or homicidal ideations, denies any visual disturbances or delusions at this time Review of Systems Except as stated in HPI: all other systems reviewed are Neg Objective Alert: Yes [place]: Person, Place, Date, Situation Mood: Calm Affect: Other (more reactive today) Memory Intact: Immediate, Recent, Remote Hallucinations: Other (no auditory or visual hallucinations) Delusions: No Delusion Type: Other (no delusions) Suicidal: Ideation (contniues to have passive SI) Homicidal: Ideation (denies) Insight/Judgment Improved insight, fair judgment and impulse control Vitals/IOs Vital Signs Date Time Temp Pulse Resp B/P Pulse Ox O2 Delivery O2 Flow Rate FiO2 03/18/17 06:03 97.7 57 16 142/71 96 Intake and Output 03/17/17 03/17/17 03/18/17 08:00 16:00 00:00 Intake Total 360 ml Balance 360 ml Assessment & Plan Problem List: (1) Major depressive disorder without psychotic features ICD Code: F32.9 Assessment & Plan Estimated LOS: 5-7 days. Patient at this time continues to endorse depressive symptoms but much less so as having vague suicidal ideations that are less in duration. Patient noted more more reactive today with occasional smiling and poor affect. Patient noted to be slightly more engaging in interview and attempted to improve his hygiene is discharge yesterday and attended shave. Patient noted to have response to medications but will require increase in dose adjustments to optimize response. Continue sertraline 150 mg by mouth daily increase Wellbutrin 100 mg 3 times a day. Supportive psychotherapy provided. Discharge planning and process Justification for Cont. Inpt. Patient at risk for decompensation of her lower level of care Discharge Planning In progress Request HC Surrog/Guard Advoc?: No Problem Qualifiers (1) Major depressive disorder without psychotic features: Qualified Code: F32.2 - Severe single current episode of major depressive disorder, without psychotic features Jose L Emerson MD Mar 18, 2017 19:27
[2017-03-18] MEDS: REMOVE OLD NICOTINE PATCH T-DERMAL SCH (21:00)
[2017-03-18] MEDS: traZODone HCL 50 MG TAB PO PRN (21:52)
[2017-03-19] MEDS: LORazepam 0.5 MG TAB age > 65 yrs PO PRN ×2 (02:09→17:19)
[2017-03-19 05:30] VITALS: BP 158/91; PULSE 62; RESP 16; TEMP 97.9; O2SAT 97
[2017-03-19] MEDS: SERTRALINE HCL 100 MG TAB PO SCH (08:53)
[2017-03-19] MEDS: METOPROLOL TARTRATE 25 MG TAB PO SCH ×2 (08:54→20:38)
[2017-03-19] MEDS: ATORVASTATIN 20 MG TAB PO SCH (08:54)
[2017-03-19] MEDS: buPROPion HCL 100 MG TAB PO SCH ×3 (08:54→17:46)
[2017-03-19] MEDS: LISINOPRIL 20 MG TAB PO SCH ×2 (08:55→20:39)
[2017-03-19] MEDS: CHOLECALCIFEROL (VIT D3) 1000 UNIT TAB PO SCH (08:55)
[2017-03-19] MEDS: NICOTINE 21 MG/24 HR PATCH T-DERMAL SCH (09:00)
--- NOTE | 2017-03-19 11:15 | EKG ---
Date Performed: 03/18/2017 Time Performed: 19:46:07 PTAGE: 66 years EKG: Sinus rhythm NORMAL ECG Since PREVIOUS TRACING , no significant change noted PREVIOUS TRACIN02/27/2017 13.14 DOCTOR: Chalino Buchanan Interpretating Date/Time 03/19/2017 11:14:35
--- NOTE | 2017-03-19 17:53 | HHI.PYPN ---
Subjective Remarks Patient seen for follow-up, chart reviewed. As per nursing report patient has been no mostly in bed, feeling depressed but denies suicidal ideations. Patient seen lying in hospital bed was able to wake up for interview. Patient states that he feels "a little different" and states that he is not sure the medicine is "kicking in school. When asked to describe this feeling states that he is "aware of the space but couldn't describe. Patient reports that he has not had suicidal ideations this morning, he is eating but not as much as he states that he is given multiple meals throughout the day. Patient states that he was able to join the group outside for activity and plans on joining the group for ice cream given to everyone later today. Patient states that he will be visited by his siblings liters of note is looking forward to it. Patient also reports wanted to shave later today and continues to try to participate in groups and activities. Patient reports currently feeling "better ", denies SI, HI, AVH or delusions at this time. Review of Systems Except as stated in HPI: all other systems reviewed are Neg Objective Alert: Yes [place]: Person, Place, Date, Situation Mood: Calm Affect: Appropriate Memory Intact: Immediate, Recent, Remote Hallucinations: Other (no auditory or visual hallucinations) Delusions: No Delusion Type: Other (no delusions) Suicidal: Ideation (denies) Homicidal: Ideation (denies) Insight/Judgment Fair insight, impulse control and judgment Vitals/IOs Vital Signs Date Time Temp Pulse Resp B/P Pulse Ox O2 Delivery O2 Flow Rate FiO2 03/19/17 05:30 97.9 62 16 158/91 97 Assessment & Plan Problem List: (1) Major depressive disorder without psychotic features ICD Code: F32.9 Assessment & Plan Estimated LOS: 5-7days. Patient continues to endorse some depressed symptoms symptoms, continued to be noted to be isolative but slowly starting to participate in group activities on the unit. Patient appears to be more motivated to improve on personal hygiene has he has showered and plans on shaving later today. Patient reports feeling some effect from current medication regimen but denies any adverse drug reactions. Patient at this time denies any suicidal ideations and looks forward to visitation from family. Patient to continue current treatment regimen, continued to monitor medication response had adverse drug reactions. Supportive psychotherapy provided. To continue to be encouraged to provoke personal hygiene and participate in group activities discharge planning in process Justification for Cont. Inpt. Patient at risk for further decompensation if it lower level care Discharge Planning In progress Request HC Surrog/Guard Advoc?: No Problem Qualifiers (1) Major depressive disorder without psychotic features: Qualified Code: F32.2 - Severe single current episode of major depressive disorder, without psychotic features Jose L Emerson MD Mar 19, 2017 17:53
[2017-03-19 17:57] VITALS: BP 157/82; PULSE 63; RESP 16; TEMP 98.2; O2SAT 94
[2017-03-19] MEDS: traZODone HCL 50 MG TAB PO PRN (20:38)
[2017-03-19] MEDS: REMOVE OLD NICOTINE PATCH T-DERMAL SCH (20:39)
[2017-03-20 06:19] VITALS: BP 161/86; PULSE 73; RESP 18; TEMP 99; O2SAT 96
[2017-03-20] MEDS: ATORVASTATIN 20 MG TAB PO SCH (08:29)
[2017-03-20] MEDS: SERTRALINE HCL 100 MG TAB PO SCH (08:29)
[2017-03-20] MEDS: buPROPion HCL 100 MG TAB PO SCH ×3 (08:29→17:14)
[2017-03-20] MEDS: LISINOPRIL 20 MG TAB PO SCH ×2 (08:30→20:54)
[2017-03-20] MEDS: METOPROLOL TARTRATE 25 MG TAB PO SCH ×2 (08:30→20:53)
[2017-03-20] MEDS: CHOLECALCIFEROL (VIT D3) 1000 UNIT TAB PO SCH (08:30)
[2017-03-20] MEDS: NICOTINE 21 MG/24 HR PATCH T-DERMAL SCH (08:31)
[2017-03-20] MEDS: LORazepam 0.5 MG TAB age > 65 yrs PO PRN ×2 (08:48→20:54)
--- NOTE | 2017-03-20 15:49 | HHI.PYPN ---
Subjective Remarks Patient was seen and case discussed with nursing. Blood pressure has been elevated. Patient is seclusive to bed. Flat affect, apathetic. Chronic suicidal thoughts with no intent or plan. Guilty feelings, "I messed up the last 4 years." Denies auditory visual hallucinations Objective Alert: Yes [place]: Person, Place, Date, Situation Mood: Calm Affect: Appropriate Memory Intact: Immediate, Recent, Remote Hallucinations: Other (no auditory or visual hallucinations) Delusions: No Delusion Type: Other (no delusions) Suicidal: Intent (denies), Plan (denies), Ideation (passing) Homicidal: Ideation (denies) Insight/Judgment Poor Vitals/IOs Vital Signs Date Time Temp Pulse Resp B/P Pulse Ox O2 Delivery O2 Flow Rate FiO2 03/20/17 06:19 99.0 73 18 161/86 96 Assessment & Plan Problem List: (1) Major depressive disorder without psychotic features ICD Code: F32.9 Assessment & Plan Vitals every 6 hours, increase lisinopril to 30 mg by mouth twice a day. If hypertension continues we will reconsult Justification for Cont. Inpt. Patient would decompensate in a less restrictive setting Request HC Surrog/Guard Advoc?: No Problem Qualifiers (1) Major depressive disorder without psychotic features: Qualified Code: F32.2 - Severe single current episode of major depressive disorder, without psychotic features Db Lawler DO Mar 20, 2017 15:48
[2017-03-20] MEDS ORDERED: PILL SPLITTER OTHER PRN (16:15)
[2017-03-20 17:00] VITALS: BP 121/73; PULSE 82; RESP 16; TEMP 97.8; O2SAT 96
[2017-03-20 18:35] VITALS: BP 129/73; PULSE 67; RESP 18; TEMP 96.4
[2017-03-20] MEDS: traZODone HCL 50 MG TAB PO PRN (20:53)
[2017-03-21 05:45] VITALS: BP 154/72; PULSE 59; RESP 17; TEMP 97.9; O2SAT 96
[2017-03-21] MEDS: ATORVASTATIN 20 MG TAB PO SCH (09:05)
[2017-03-21] MEDS: METOPROLOL TARTRATE 25 MG TAB PO SCH ×2 (09:05→20:28)
[2017-03-21] MEDS: LISINOPRIL 20 MG TAB PO SCH ×2 (09:06→20:28)
[2017-03-21] MEDS: SERTRALINE HCL 100 MG TAB PO SCH (09:06)
[2017-03-21] MEDS: LORazepam 0.5 MG TAB age > 65 yrs PO PRN ×2 (09:06→20:26)
[2017-03-21] MEDS: buPROPion HCL 100 MG TAB PO SCH ×3 (09:07→17:25)
[2017-03-21] MEDS: CHOLECALCIFEROL (VIT D3) 1000 UNIT TAB PO SCH (09:07)
--- NOTE | 2017-03-21 12:13 | HHI.PYPN ---
Subjective Remarks Patient was seen and case discussed with nursing. Patient remains with flat and apathetic affect. Chief complaint is poor sleep. Patient appears to be feigning hand tremors. He shows me his hands shaking but then when he is distracted they stop shaking. Continues to have guilty feelings. Suicidal ideation "pop in and out." Vague and superficial Objective Alert: Yes [place]: Person, Place, Date, Situation Mood: Calm Affect: Appropriate Memory Intact: Immediate, Recent, Remote Hallucinations: Other (no auditory or visual hallucinations) Delusions: No Delusion Type: Other (no delusions) Suicidal: Intent (denies), Plan (denies), Ideation (Pop in) Homicidal: Ideation (denies) Insight/Judgment Poor Vitals/IOs Vital Signs Date Time Temp Pulse Resp B/P Pulse Ox O2 Delivery O2 Flow Rate FiO2 03/21/17 05:45 97.9 59 17 154/72 96 Assessment & Plan Problem List: (1) Major depressive disorder without psychotic features ICD Code: F32.9 Assessment & Plan Continue current treatment plan Justification for Cont. Inpt. Patient would decompensate in a less restrictive setting Request HC Surrog/Guard Advoc?: No Problem Qualifiers (1) Major depressive disorder without psychotic features: Qualified Code: F32.2 - Severe single current episode of major depressive disorder, without psychotic features Db Lawler DO Mar 21, 2017 12:13
[2017-03-21 16:55] VITALS: BP 165/79; PULSE 67; RESP 18; TEMP 98; O2SAT 97
[2017-03-21] MEDS: traZODone HCL 100 MG TAB PO PRN (20:28)
[2017-03-22 05:28] VITALS: BP 136/76; PULSE 58; RESP 18; TEMP 98.1; O2SAT 94
[2017-03-22] MEDS: SERTRALINE HCL 100 MG TAB PO SCH (08:41)
[2017-03-22] MEDS: buPROPion HCL 100 MG TAB PO SCH ×3 (08:41→17:06)
[2017-03-22] MEDS: METOPROLOL TARTRATE 25 MG TAB PO SCH ×2 (08:41→20:42)
[2017-03-22] MEDS: CHOLECALCIFEROL (VIT D3) 1000 UNIT TAB PO SCH (08:41)
[2017-03-22] MEDS: LISINOPRIL 20 MG TAB PO SCH ×2 (08:41→20:42)
[2017-03-22] MEDS: ATORVASTATIN 20 MG TAB PO SCH (08:41)
[2017-03-22] MEDS: LORazepam 0.5 MG TAB age > 65 yrs PO PRN (09:12)
[2017-03-22 15:35] VITALS: BP 164/92; PULSE 66; RESP 18; TEMP 98; O2SAT 94
--- NOTE | 2017-03-22 16:21 | HHI.PYPN ---
Subjective Remarks Patient seen in his room with nurse Oral. 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 It appears she was upset that I insisted that nurse Oral be present. Patient is somewhat vague and confusing about suicidal ideation said he felt better towards the end of last week and then had a increase in his suicidal ideation. Nurses tell me that he is doing some subtle medication manipulation related to his benzodiazepines. For now continue treatment no change Review of Systems Except as stated in HPI: all other systems reviewed are Neg Objective Alert: Yes [place]: Person, Place, Date, Situation Mood: Calm Affect: Appropriate Memory Intact: Immediate, Recent, Remote Hallucinations: Other (no auditory or visual hallucinations) Delusions: No Delusion Type: Other (no delusions) Suicidal: Intent (denies), Plan (denies), Ideation (Pop in) Homicidal: Ideation (denies) Insight/Judgment Poor Vitals/IOs Vital Signs Date Time Temp Pulse Resp B/P Pulse Ox O2 Delivery O2 Flow Rate FiO2 03/22/17 15:35 98.0 66 18 164/92 94 Assessment & Plan Problem List: (1) Major depressive disorder without psychotic features ICD Code: F32.9 Assessment & Plan Estimated LOS: days patient continues depressed. Giving make statements related to his suicidal ideation, I question if there is some manipulation related to this Justification for Cont. Inpt. At the present time the patient may decompensate if placed in a lower level of care Discharge Planning To be determined Request HC Surrog/Guard Advoc?: No Problem Qualifiers (1) Major depressive disorder without psychotic features: Qualified Code: F32.2 - Severe single current episode of major depressive disorder, without psychotic features Silvestre Breaux MD Mar 22, 2017 16:21
[2017-03-22] MEDS: traZODone HCL 100 MG TAB PO PRN (20:42)
[2017-03-23 06:20] VITALS: BP_SYST 132; BP_SYST 173; BP_DIAS 84; BP_DIAS 98; PULSE 61; RESP 16; TEMP 97.3; O2SAT 98
[2017-03-23 06:22] VITALS: BP 132/84
[2017-03-23] MEDS: SERTRALINE HCL 100 MG TAB PO SCH (08:47)
[2017-03-23] MEDS: ATORVASTATIN 20 MG TAB PO SCH (08:47)
[2017-03-23] MEDS: LISINOPRIL 20 MG TAB PO SCH ×2 (08:48→20:15)
[2017-03-23] MEDS: CHOLECALCIFEROL (VIT D3) 1000 UNIT TAB PO SCH (08:48)
[2017-03-23] MEDS: METOPROLOL TARTRATE 25 MG TAB PO SCH ×2 (08:48→20:15)
[2017-03-23] MEDS: buPROPion HCL 100 MG TAB PO SCH ×3 (08:48→18:00)
[2017-03-23] MEDS: LORazepam 0.5 MG TAB age > 65 yrs PO PRN (09:33)
[2017-03-23 15:33] VITALS: BP 128/67; PULSE 70; RESP 18; TEMP 98; O2SAT 97
--- NOTE | 2017-03-23 16:23 | HHI.PYPN ---
Subjective Remarks Patient seen for follow-up, chart reviewed. As per nursing report patient noted to be seclusive in room. Patient found lying in hospital bed, was able to wake up to engage in interview. Patient states that yesterday was a bad day for him if in the sense that he was feeling "edgy". He states they also and having some poor sleep for the past 3 days waking up at night. Patient reports that he is in a group yesterday which she enjoyed and plans on participating activities today as well. Patient noted to be clean shaven and states that he will continue to improve on his hygiene, requesting their clippers for his hands. Patient states that today his mood has been "okay", reports that his last suicidal thoughts were last Wednesday and that yesterday he had been "up and down" but feels well today. Patient reports that he'll be visited by his brother today which she looks forward to. At this time he denies any suicidal ideations, homicidal ideations, perceptual disturbances or delusions. Review of Systems Except as stated in HPI: all other systems reviewed are Neg Objective Alert: Yes [place]: Person, Place, Date, Situation Mood: Calm Affect: Appropriate (slightly more reactive today) Memory Intact: Immediate, Recent, Remote Hallucinations: Other (no auditory or visual hallucinations) Delusions: No Delusion Type: Other (no delusions) Suicidal: Ideation (denies to Brennan reports having passive SI) Homicidal: Ideation (denies) Insight/Judgment Fair insight, fair impulse control and judgment Vitals/IOs Vital Signs Date Time Temp Pulse Resp B/P Pulse Ox O2 Delivery O2 Flow Rate FiO2 03/23/17 15:33 98.0 70 18 128/67 97 Assessment & Plan Problem List: (1) Major depressive disorder without psychotic features ICD Code: F32.9 Assessment & Plan Estimated LOS: 5-7 days. Patient at this time continues to endorse depressive symptoms over the weekend, having endorsed suicidal ideations as well but at this time states that he has been feeling better and has not had resurgence of suicidal thoughts since yesterday. Patient reports responding well and tolerating current treatment regimen, denies any adverse drug reactions. Patient encouraged to continue improvement on hygiene and to participate in groups and activities. Patient to continue current treatment. Monitor for medication response and possible adverse drug reactions. Discharge planning in progress. Justification for Cont. Inpt. Patient at risk for decompensation if it lower level of care Discharge Planning In progress Request HC Surrog/Guard Advoc?: No Problem Qualifiers (1) Major depressive disorder without psychotic features: Qualified Code: F32.2 - Severe single current episode of major depressive disorder, without psychotic features Jose L Emerson MD Mar 23, 2017 16:23
[2017-03-23] MEDS: traZODone HCL 100 MG TAB PO PRN (20:15)
[2017-03-24] MEDS: LORazepam 0.5 MG TAB age > 65 yrs PO PRN ×3 (03:01→21:00)
[2017-03-24 06:34] VITALS: BP 131/71; PULSE 75; RESP 16; TEMP 97.7; O2SAT 93
[2017-03-24] MEDS: SERTRALINE HCL 100 MG TAB PO SCH (08:19)
[2017-03-24] MEDS: CHOLECALCIFEROL (VIT D3) 1000 UNIT TAB PO SCH (08:20)
[2017-03-24] MEDS: LISINOPRIL 20 MG TAB PO SCH ×2 (08:20→21:00)
[2017-03-24] MEDS: ATORVASTATIN 20 MG TAB PO SCH (08:20)
[2017-03-24] MEDS: METOPROLOL TARTRATE 25 MG TAB PO SCH ×2 (08:20→21:00)
[2017-03-24] MEDS: buPROPion HCL 100 MG TAB PO SCH ×3 (09:00→17:07)
[2017-03-24 17:24] VITALS: BP 147/82; PULSE 64; RESP 17; TEMP 98.4; O2SAT 93
--- NOTE | 2017-03-24 18:48 | HHI.PYPN ---
Subjective Remarks Patient seen for follow-up, chart reviewed. Test initial report patient continues to be noted to be irritable, seclusive in room but medication compliant. Patient continues to report some improvement although feels anxious at times reflecting on his previous 4 years and his losses. Patient looks forward to them for making an assisted living facility but continues to be uncertain on plans thereafter. Patient continues to have been visited by brother and feels supported by them. Patient continued to be encouraged to improve hygiene and to participate in groups which she states will try to do. Patient at this time denies any suicide ideations at the moment, denies any HI, AVH or delusions. Review of Systems Except as stated in HPI: all other systems reviewed are Neg Objective Alert: Yes [place]: Person, Place, Date, Situation Mood: Calm Affect: Other (slightly constricted) Memory Intact: Immediate, Recent, Remote Hallucinations: Other (no auditory or visual hallucinations) Delusions: No Delusion Type: Other (no delusions) Suicidal: Ideation (denies to Brennan reports having passive SI) Homicidal: Ideation (denies) Insight/Judgment Fair insight, impulse control and judgment Vitals/IOs Vital Signs Date Time Temp Pulse Resp B/P Pulse Ox O2 Delivery O2 Flow Rate FiO2 03/24/17 17:24 98.4 64 17 147/82 93 Assessment & Plan Problem List: (1) Major depressive disorder without psychotic features ICD Code: F32.9 Assessment & Plan Patient at this time continues to endorse depressive symptoms but slowly seems to be improving. Patient denies any suicidality at this time appears to be inconsistent with outlook at times. Patient to continue current treatment. Monitor medication response and possible adverse drug reactions. Continue to encouraged hygiene and participation in groups and activities. Discharge planning in progress Justification for Cont. Inpt. Patient at risk for decompensation lower level of care Discharge Planning In progress Request HC Surrog/Guard Advoc?: No Problem Qualifiers (1) Major depressive disorder without psychotic features: Qualified Code: F32.2 - Severe single current episode of major depressive disorder, without psychotic features Jose L Emerson MD Mar 24, 2017 18:48
[2017-03-24] MEDS: traZODone HCL 100 MG TAB PO PRN (21:00)
[2017-03-25 05:30] VITALS: BP 134/73; PULSE 66; RESP 16; TEMP 97.8; O2SAT 98
[2017-03-25] MEDS: METOPROLOL TARTRATE 25 MG TAB PO SCH ×2 (08:56→21:00)
[2017-03-25] MEDS: ATORVASTATIN 20 MG TAB PO SCH (08:56)
[2017-03-25] MEDS: SERTRALINE HCL 100 MG TAB PO SCH (08:57)
[2017-03-25] MEDS: LISINOPRIL 20 MG TAB PO SCH ×2 (08:57→20:20)
[2017-03-25] MEDS: CHOLECALCIFEROL (VIT D3) 1000 UNIT TAB PO SCH (08:57)
[2017-03-25] MEDS: buPROPion HCL 100 MG TAB PO SCH ×3 (08:57→18:00)
[2017-03-25] MEDS: LORazepam 0.5 MG TAB age > 65 yrs PO PRN ×2 (09:56→21:42)
--- NOTE | 2017-03-25 15:25 | HHI.PYPN ---
Subjective Remarks Patient seen for follow-up, chart reviewed. As per nursing report patient at times anxious and requesting Ativan when necessary for anxiety, continues to be noted to be acetabular room. Walking down the nance but was able and engage in interview with telegraphic typewriter mechanic today. Patient states that he has not been having any suicidal thoughts for the past couple of days and that his mood has been "fair" although continues to perseverate on the last 4 years which she's had most of his losses. Patient states that he went to groups yesterday and that he had visit from his brother recently. Patient reports that at times having difficulty staying asleep but was reminded that he has medications available to him in case he has difficulty sleeping. Patient was also encouraged to participate in groups increase improvement and personal hygiene which would help improve in his mood. Review of Systems Except as stated in HPI: all other systems reviewed are Neg Objective Alert: Yes [place]: Person, Place, Date, Situation Mood: Calm (fair) Affect: Other (slightly constricted but occasionally noted to be smiling at times) Memory Intact: Immediate, Recent, Remote Hallucinations: Other (no auditory or visual hallucinations) Delusions: No Delusion Type: Other (no delusions) Suicidal: Ideation (denies to Brennan reports having passive SI) Homicidal: Ideation (denies) Insight/Judgment Improved insight, fair impulse control and judgment Vitals/IOs Vital Signs Date Time Temp Pulse Resp B/P Pulse Ox O2 Delivery O2 Flow Rate FiO2 03/25/17 05:30 97.8 66 16 134/73 98 Intake and Output 03/24/17 03/24/17 03/25/17 08:00 16:00 00:00 Intake Total 240 ml Balance 240 ml Assessment & Plan Problem List: (1) Major depressive disorder without psychotic features ICD Code: F32.9 Assessment & Plan Estimated LOS: 5-7 days. Patient this time continues to improve in which she has been having less depressive symptoms, denies suicidality at this time and noted to be participating more in activities and attended to improve in his hygiene. Patient continues to be perseverative on his losses for the past 4 years which contribute to him feeling sad and depressed but was reminded to focus on his future goals. Patient is noted to be anxious wanting to know if he 's exhibited to living facility which team is currently exploring. Patient to continue current treatment, monitor for medication response and adverse drug reactions. Continue to encourage patient to improve on personal hygiene and participate in groups and activities. Discharge planning in progress Justification for Cont. Inpt. Patient risk for further decompensation if it lower level of care Request HC Surrog/Guard Advoc?: No Problem Qualifiers (1) Major depressive disorder without psychotic features: Qualified Code: F32.2 - Severe single current episode of major depressive disorder, without psychotic features Jose L Emerson MD Mar 25, 2017 15:25
[2017-03-25] MEDS: traZODone HCL 100 MG TAB PO PRN (20:20)
[2017-03-26 06:12] VITALS: BP 136/72; PULSE 69; RESP 16; TEMP 98.3; O2SAT 96
[2017-03-26] MEDS: ATORVASTATIN 20 MG TAB PO SCH (09:33)
[2017-03-26] MEDS: METOPROLOL TARTRATE 25 MG TAB PO SCH ×2 (09:33→20:35)
[2017-03-26] MEDS: CHOLECALCIFEROL (VIT D3) 1000 UNIT TAB PO SCH (09:33)
[2017-03-26] MEDS: SERTRALINE HCL 100 MG TAB PO SCH (09:33)
[2017-03-26] MEDS: buPROPion HCL 100 MG TAB PO SCH ×3 (09:33→18:00)
[2017-03-26] MEDS: LISINOPRIL 20 MG TAB PO SCH ×2 (09:34→20:35)
[2017-03-26] MEDS: LORazepam 0.5 MG TAB age > 65 yrs PO PRN (10:25)
--- NOTE | 2017-03-26 19:12 | HHI.PYPN ---
Subjective Remarks Patient seen for follow-up with counselor, chart reviewed. Patient found lying in hospital bed was able to wake up to engage in interview. Patient stated that he had been feeling "fair", denies any difficulty with staff yesterday. Patient states that he still feels mildly depressed but feeling better than when he first arrived. Patient denies any suicidal ideations for the past couple of days and feels things are getting better. Patient states he continues to think about the past with regrets but isn't having to move forward. Patient was advised by counselor that in assisted living facility has accepted him postdischarge in the hospital which she was pleased to hear. Patient states that he would like to assimilate this information over the weekend and possibly discharge Wednesday it to this place if he continues to feel well. Patient is time denies any SI, HI, AVH or delusions. Review of Systems Except as stated in HPI: all other systems reviewed are Neg Objective Alert: Yes [place]: Person, Place, Date, Situation Mood: Calm (fair) Affect: Other (slightly constricted but more reactive today.) Memory Intact: Immediate, Recent, Remote Hallucinations: Other (no auditory or visual hallucinations) Delusions: No Delusion Type: Other (no delusions) Suicidal: Ideation (denies to Brennan reports having passive SI) Homicidal: Ideation (denies) Insight/Judgment Fair insight, impulse control and judgment Vitals/IOs Vital Signs Date Time Temp Pulse Resp B/P Pulse Ox O2 Delivery O2 Flow Rate FiO2 03/26/17 06:12 98.3 69 16 136/72 96 Assessment & Plan Problem List: (1) Major depressive disorder without psychotic features ICD Code: F32.9 Assessment & Plan Patient at this time continues to improve with less depressive symptoms noted, more reactive, more interactive with staff and participating more with groups. Patient denies having a suicidal ideations for the past couple of days. Patient appeared hopeful with more stable mood. Patient to continue current treatment, likely to discharge on Wednesday to the assisted-living facility where they have accepted him already. Patient continued to be encouraged to maintain hygiene and participating groups and activities. Discharge planning in progress Justification for Cont. Inpt. Patient at risk for decompensation if it lower level of care Discharge Planning In progress Request HC Surrog/Guard Advoc?: No Problem Qualifiers (1) Major depressive disorder without psychotic features: Qualified Code: F32.2 - Severe single current episode of major depressive disorder, without psychotic features Jose L Emerson MD Mar 26, 2017 19:11
[2017-03-26 19:25] VITALS: BP 145/73; PULSE 86; RESP 18; TEMP 98.2; O2SAT 96
[2017-03-26] MEDS: traZODone HCL 100 MG TAB PO PRN (20:35)
[2017-03-27] MEDS: LORazepam 0.5 MG TAB age > 65 yrs PO PRN ×2 (03:36→15:57)
[2017-03-27 05:22] VITALS: BP 139/78; PULSE 56; RESP 18; TEMP 98.3; O2SAT 96
[2017-03-27] MEDS: buPROPion HCL 100 MG TAB PO SCH ×3 (08:58→18:20)
[2017-03-27] MEDS: SERTRALINE HCL 100 MG TAB PO SCH (08:58)
[2017-03-27] MEDS: LISINOPRIL 20 MG TAB PO SCH ×2 (08:59→21:15)
[2017-03-27] MEDS: ATORVASTATIN 20 MG TAB PO SCH (09:00)
[2017-03-27] MEDS: CHOLECALCIFEROL (VIT D3) 1000 UNIT TAB PO SCH (09:00)
[2017-03-27] MEDS: METOPROLOL TARTRATE 25 MG TAB PO SCH ×2 (09:00→21:15)
[2017-03-27 18:31] VITALS: BP 176/82; PULSE 62; RESP 17; TEMP 97.6; O2SAT 98
[2017-03-27] MEDS: traZODone HCL 100 MG TAB PO PRN (21:15)
--- NOTE | 2017-03-27 22:51 | HHI.PYPN ---
Subjective Remarks Pt seen and discussed with staff. He reports depression continues to improve. No medication side effects. He denies SI/HI. STaff report that he has been more active in unit activities. Objective Alert: Yes [place]: Person, Place, Date, Situation Mood: Depressed Affect: Restricted, Other (slightly constricted but more reactive today.) Memory Intact: Immediate, Recent, Remote Hallucinations: Other (no auditory or visual hallucinations) Delusions: No Delusion Type: Other (no delusions) Suicidal: Ideation (denies) Homicidal: Ideation (denies) Insight/Judgment fair Vitals/IOs Vital Signs Date Time Temp Pulse Resp B/P Pulse Ox O2 Delivery O2 Flow Rate FiO2 03/27/17 18:31 97.6 62 17 176/82 98 Assessment & Plan Problem List: (1) Major depressive disorder without psychotic features ICD Code: F32.9 Assessment & Plan Continue current tx plan. Estimated LOS: days Justification for Cont. Inpt. risk of decompensation Request HC Surrog/Guard Advoc?: No Problem Qualifiers (1) Major depressive disorder without psychotic features: Qualified Code: F32.2 - Severe single current episode of major depressive disorder, without psychotic features Dee Castellanos MD Mar 27, 2017 22:51
[2017-03-28] MEDS: LORazepam 0.5 MG TAB age > 65 yrs PO PRN ×2 (03:45→15:43)
[2017-03-28 06:23] VITALS: BP 140/78; PULSE 60; RESP 18; TEMP 97.5; O2SAT 98
[2017-03-28] MEDS: ATORVASTATIN 20 MG TAB PO SCH (08:36)
[2017-03-28] MEDS: METOPROLOL TARTRATE 25 MG TAB PO SCH ×2 (08:37→20:59)
[2017-03-28] MEDS: buPROPion HCL 100 MG TAB PO SCH ×3 (08:38→17:00)
[2017-03-28] MEDS: LISINOPRIL 20 MG TAB PO SCH ×2 (08:38→20:59)
[2017-03-28] MEDS: SERTRALINE HCL 100 MG TAB PO SCH (08:39)
[2017-03-28] MEDS: CHOLECALCIFEROL (VIT D3) 1000 UNIT TAB PO SCH (08:39)
--- NOTE | 2017-03-28 14:24 | HHI.PYPN ---
Subjective Remarks Pt seen and discussed with staff. Pt has been compliant and cooperative. No behavioral problems. He reports some anxiety about transitioning to [facility], but that depression has improved. No medication side effects. NO SI/HI Objective Alert: Yes [place]: Person, Place, Date, Situation Mood: Calm Affect: Restricted Memory Intact: Immediate, Recent, Remote Hallucinations: Other (no auditory or visual hallucinations) Delusions: No Delusion Type: Other (no delusions) Suicidal: Ideation (denies) Homicidal: Ideation (denies) Insight/Judgment appropriate Vitals/IOs Vital Signs Date Time Temp Pulse Resp B/P Pulse Ox O2 Delivery O2 Flow Rate FiO2 03/28/17 06:23 97.5 60 18 140/78 98 Assessment & Plan Problem List: (1) Major depressive disorder without psychotic features ICD Code: F32.9 Assessment & Plan Continue current tx plan. Estimated LOS: days Justification for Cont. Inpt. risk of decompensation Request HC Surrog/Guard Advoc?: No Problem Qualifiers (1) Major depressive disorder without psychotic features: Qualified Code: F32.2 - Severe single current episode of major depressive disorder, without psychotic features Dee Castellanos MD Mar 28, 2017 14:24
[2017-03-28 18:34] VITALS: BP 178/86; PULSE 65; RESP 18; TEMP 97.7; O2SAT 97
[2017-03-28] MEDS: traZODone HCL 100 MG TAB PO PRN (20:59)
[2017-03-29 06:00] VITALS: BP 160/82; PULSE 62; RESP 17; TEMP 97.5; O2SAT 95
[2017-03-29] MEDS: LORazepam 0.5 MG TAB age > 65 yrs PO PRN (06:03)
[2017-03-29] MEDS: LISINOPRIL 20 MG TAB PO SCH (08:13)
[2017-03-29] MEDS: buPROPion HCL 100 MG TAB PO SCH ×2 (08:14→12:25)
[2017-03-29] MEDS: CHOLECALCIFEROL (VIT D3) 1000 UNIT TAB PO SCH (08:14)
[2017-03-29] MEDS: ATORVASTATIN 20 MG TAB PO SCH (08:14)
[2017-03-29] MEDS: SERTRALINE HCL 100 MG TAB PO SCH (08:14)
[2017-03-29] MEDS: METOPROLOL TARTRATE 25 MG TAB PO SCH (08:14)
[2017-03-29] MEDS ORDERED: ZOLO100T PO (13:10)
[2017-03-29] MEDS ORDERED: BUPR100T4 PO (13:10)
[2017-03-29] MEDS ORDERED: METO25TA3 PO (13:10)
[2017-03-29] MEDS ORDERED: ATOR20TA15 PO (13:10)
[2017-03-29] MEDS ORDERED: VITA1000 PO (13:10)
[2017-03-29] MEDS ORDERED: LISI-515 PO (13:10)
--- NOTE | 2017-03-29 16:56 | HHI.DS ---
Psychiatry Discharge Summary Inpatient Psychiatric care?: Yes Advance Directive: No Reason Not Provided: Declined Mental Health AdvanceDirective: No Health Care Proxy: No Admission Admission Date Mar 10, 2017 at 18:33 Admission Diagnosis: (1) Major depressive disorder without psychotic features ICD Code: F32.9 Brief History Patient is a 66-year-old man single domicile alone, unemployed currently on social security benefits, has a brother in the area, past psychiatric history of depression, anxiety disorder, ptsd, nicotine use disorder , opiate use disorder (previously on MMTP), no previous psychiatric hospitalizations no previous suicide attempt or self-injurious behavior who was brought into the emergency department yesterday under the [place] act for making suicidal statements at the [facility]. As per ER note patient stated he was tired of feeling weak and made suicidal statements in order to get help. He also reported feeling weak for the past 1-2 months, unable to sleep at night, and a 20 pound weight loss but denied any visual auditory hallucinations. As per chart patient had been seen twice over the past month for the same complaint. Patient was transferred to the inpatient psychiatric unit for further evaluation and management. Patient was seen today with nurse, found lying on a hospital bed initially guarded but was later more cooperative and engaging in interview. Patient states they have been feeling tired for the past 2 months and had come to the emergency room recently for the same reason. He reports that he has a primary care doctor Dr. Egan as a MI has last seen him 9 months ago. Patient reports that his mood lately has been irritable decreased sleep for the past 1-2 weeks, reporting having problems initiating and maintaining sleep. Patient states that when he gets up at night after difficulty maintaining sleep he reports doing nothing. Patient reports decreased energy and concentration and pleasure in activities, but denies any change in appetite. 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 He also reports that recently he has been having suicidal ideations that have been occurring for the past couple of weeks which last a couple of minutes and has thought of several methods via hanging, car crash, overdose but but denies having had a specific plan or intention. Patient at this time denies any current suicidal ideations and states that his reason to live would be for his health and to get better. Currently states feeling better than the past couple of days, denies suicidal or homicidal ideations at this time, denies any auditory or visual hallucinations, denies any delusions. Patient states that he would like a place to go to take care of me. Past psychiatric history: Patient with a previous psychiatric diagnoses of depression, anxiety, PTSD. Denies any previous psychiatric hospitalizations, denies any previous suicide attempts, denies any self-injurious behavior. Patient reports that he had once seen a psychiatrist since 12 years ago after an ex-girlfriend had left him. He states that he was started on antidepressant (unspecified) and had last taken that medication about 12 years ago. He also states that he was prescribed Xanax 0.5 mg when necessary breakthrough anxiety by his primary care doctor one year ago but has been one year since he has last taken. Patient denies any history of sexual or physical abuse. Substance use history: Tobacco use about 7-8 cigarettes daily, occasional alcohol use, last use was a couple of weeks ago. Reports occasional marijuana use, reports heroine use at the age of 21 for 6 months, reports prescription opioid use for 1-1/2 years, was was connected to a methadone clinic where she was receiving 70 mg of methadone daily last use was 3 months ago. Elroy also reports having had cocaine use years ago. 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 Patient has a brother living in the area which she has contact with over the phone. Tobacco Use In Past 30 Days: 5 or More Cigarettes/Day Alcohol Use: Never Hospital Course Patient is a 66-year-old man single domicile alone, unemployed currently on social security benefits, has a brother in the area, past psychiatric history of depression, anxiety disorder, ptsd, nicotine use disorder , opiate use disorder (previously on MMTP), no previous psychiatric hospitalizations no previous suicide attempt or self-injurious behavior who was brought into the emergency department under the [place] for making suicidal statements at the MI. As per ER note patient stated he was tired of feeling weak and made suicidal statements in order to get help. He also reported feeling weak for the past 1-2 months, unable to sleep at night, and a 20 pound weight loss and had been seen twice over the past month for the same complaint. Patient was transferred to the inpatient psychiatric unit for further evaluation and management. Patient was started on sertraline 25 mg by mouth daily for depressive symptoms and suicidal ideations in the context of multiple psychosocial stressors. Patient was uptitrated while on the unit with noted slow improvement in mood and decrease in suicidal ideations. Patient had limited interaction with groups and activities on the unit but slowly started to participate more and more. Patient began to improve and hygiene, began to have less nihilistic thinking, began participating in groups and began become more future oriented. Sertraline was titrated up to 150 mg daily and had bupropion 100 mg daily and titrated up to 3 times a day. Patient tolerated medication well without adverse drug reactions. Throughout admission patient had family visiting and provide support. Patient was able to be placed in assisted living facility and upon discharge was excited and looking forward to this new place. Upon discharge patient reported feeling a little anxious about going to the new place but states feeling hopeful and plan I continue current treatment and outpatient follow-up for continuity of care. Patient states that once he is at his new place he plans on taking walks everyday wanted disfavor television shows and adhering to treatment. Patient at this time psychiatric stable to be discharged to continue outpatient follow-up, denies SI, HI, AVH or delusions at this time. Patient advised to continue current treatment and to adhere to outpatient follow-up appointments which he agreed to. Patient advised to call 911 or go to nearest ED in case of emergency. Patient agrees with plan. Results Blood Pressure 160 / 82 Vital Signs Date Time Temp Pulse Resp B/P Pulse Ox O2 Delivery O2 Flow Rate FiO2 03/29/17 06:00 97.5 62 17 160/82 95 CBC within normal limits, BMP within normal limits, lipid profile elevated triglycerides and LDL, low vitamin D level Summary of Procedures None Pending results at discharge: No Medications # of Antipsychotic meds at D/C: 0 Approp Antipsych med options 1 - Minimum of three failed multiple trials of monotherapy. 2 - Documented plan to taper to monotherapy due to previous use of multiple meds OR cross-taper in progress at D/C. 3 - Documentation of augmentation of Clozapine. 4 - Justification other than those listed in allowable values 1-3, document here : Discharge Discharge Date: Mar 29, 2017 Discharge Diagnosis: (1) Major depressive disorder without psychotic features Diagnosis: Principal ICD Code: F32.9 Mental Status Exam at Disch Patient appears stated age, found in [facility], calm and cooperative with interview, fair hygiene and grooming, fair eye contact, speech normal rate tone and prosody, mood, "alright", affect reactive, appropriate, thought process linear, future oriented, thought content denies SI, HI, AVH or delusions , insight, impulse control and judgment are fair, alert and oriented 3 Pt Condition on Discharge: Stable Discharge Disposition: ACLF/LONGTERM Discharge Instructions Diet Instructions: Heart Healthy Diet Activities you can perform: Regular-No Restrictions Scheduled Appointment: Miya Culver Discharge Time > 30 minutes Discharge/Advance Care Plan Health Problems: (1) Major depressive disorder without psychotic features Goals to promote your health * To prevent worsening of your condition and complications * To maintain your health at the optimal level Directions to meet your goals Take your medications as prescribed Follow your dietary instruction Follow activity as directed Keep your appointments as scheduled Take your immunizations and boosters as scheduled If your symptoms worsen call your PCP, if no PCP go to Urgent Care Center or Emergency Room For 24 questions related to your inpatient stay or results of tests pending at discharge, please contact Dr. Jose L Emerson at Smoking is Dangerous to Your Health. Avoid second hand smoking Problem Qualifiers (1) Major depressive disorder without psychotic features: Qualified Code: F32.2 - Severe single current episode of major depressive disorder, without psychotic features Jose L Emerson MD Mar 29, 2017 16:56
== END 2017-03-29 14:05 | DRG 885 ==
LOC: NEPD 09:43 → NEDA 18:33 → H260 20:35
PROVIDERS: ADMIT Student in an Organized Health Care Education/Training Program; ATTEND Student in an Organized Health Care Education/Training Program
DX: F32.2 Major depressive disorder, single episode, severe without psychotic features (principal); R45.851 Suicidal ideations; J44.9 Chronic obstructive pulmonary disease, unspecified; I10 Essential (primary) hypertension; F43.10 Post-traumatic stress disorder, unspecified; E78.5 Hyperlipidemia, unspecified; J45.909 Unspecified asthma, uncomplicated; E55.9 Vitamin D deficiency, unspecified; K21.9 Gastro-esophageal reflux disease without esophagitis; L30.9 Dermatitis, unspecified; Z72.0 Tobacco use; F12.90 Cannabis use, unspecified, uncomplicated; Z79.899 Other long term (current) drug therapy; Z81.8 Family history of other mental and behavioral disorders
CPT/HCPCS: 80048; 80053; 80061; 82306; 82607; 83036; 84443; 85025; 93005; J2060; Q0163